=== PATIENT | female | born 1935 | race Caucasian/White ===

== ENCOUNTER 2016-12-12 12:05 | Emergency (ER) | payer MEDICARE, BC ==
[~2016-12-12] VITALS: Ht 162.6 cm; Wt 95.5 kg
[~2016-12-12 12:05] MED LIST: ACULAR LS 5 ML5 ML; ASPIRIN 32325 MG/TAB PO; ASPIRIN E.C. 8181 MG PO; ASPRIN; BENADRYL25 M1 PO; CEFTIN 250250 MG/TAB PO; CEPHALEXIN500 M1 PO; DIABETA 2.5MG2.5 MG PO; DIABETA2.5 MG PO; FERROUS SU325 MG/TAB PO; FLONASE NASAL S16 GM NS; FLONASE0.05 MG/AC NS; FLOVENT 44MCG I13 GM IH; FLOVENT0.044 MG/A IH; FOLIC ACID PO; FORTAMET500 MG PO; GLUCOPHAGE XR500 M1 PO; GLUCOTROL 5M5 MG/TAB PO; GLUMETZA500 MG PO; GLYBURIDE PO; LEVOXYL0.075 MG PO; LEVOXYL0.15 MG PO; LISINOPRIL10 MG PO; LOPRESSOR PO; METFORMIN HCL500 MG PO; METFORMIN1000 MG PO; NORCO 325 MG-51 TAB PO; NORCO 325 MG-7.1 TAB PO; OCUFLOX OPHTH DR5 ML; PLAVIX 75MG TAB75 MG PO; PRED FORTE 1 ML1 ML; PREDNISONE10 MG PO; PREMARIN 0.60.625 M1 PO; PREMARIN0.625 MG PO; PROAIR HFA0.09 MG/AC IH; RALAFEN PO; RELAFEN500 MG PO; SEREVENT IH; SEREVENT21 MCG/ACT IH; SINGULAIR 110 MG/TAB PO; SYNTHROID 0.10.15 MG PO; SYNTHROID0.15 MG PO; TEARS NATURALE15 M1; TYLENOL 325MG325 MG PO; VALTREX1 GM PO; VENTOLIN0.09 MG IH; VITAMIN C500 MG PO; ZESTRIL 10MG10 MG PO; ZESTRIL10 MG PO; ZITHROMAX 250M250 MG PO; ZOCOR20 MG PO
[2016-12-12 12:08] VITALS: TEMP 97.2
[2016-12-12] MEDS ORDERED: CELLCEPT 5500 MG/TAB PO (12:43)
[2016-12-12] MEDS ORDERED: PRILOSEC 20MG20 MG PO (12:46)
[2016-12-12 12:47] LABS: BASO # 0.1 (0.0-0.2); EOS # 0.2 (0.0-0.7); EOS % 2.8 % (0-4.0); GRAN # 4.8 (1.4-6.5); GRAN % 58.9 % (42.2-75.2); HEMATOCRIT 37.3 % (37.0-47.0); HEMOGLOBIN 12.4 g/dl (12.5-16.0); LYMPH # 2.1 (1.2-3.4); LYMPH % 25.4 % (20.0-51.0); MEAN CELL VOLUME 87 fl (80.0-100.0); MEAN CORPUSCULAR HEMOGLOBIN 29 pg (27.0-31.0); MEAN CORPUSCULAR HGB CONC 33 g/dl (33.0-37.0); MEAN PLATELET VOLUME 10.2 fl (7.4-10.4); MONO # 0.9 (0.1-0.6); MONO % 11.5 % (1.7-9.3); PLATELET COUNT 209 K/mm3 (130-400); RED BLOOD COUNT 4.29 M/mm3 (4.10-5.30); REDCELL DISTRIBUTION WIDTH-CV 13.5 % (11.5-14.5); WHITE BLOOD COUNT 8.2 K/mm3 (4.8-10.8)
[2016-12-12] MEDS ORDERED: CYMBALTA 30MG30 MG PO (12:47)
[2016-12-12 12:51] LABS: ADJUSTED CALCIUM 9.5 mg/dL (8.4-10.2); ALANINE AMINOTRANSFERASE 23 U/L (9-52); ALBUMIN 4.1 gm/dL (3.5-5.0); ALKALINE PHOSPHATASE 120 U/L (50-136); ANION GAP 14 mmol/L (7-16); BILIRUBIN,TOTAL 0.7 mg/dL (0.0-1.0); BLOOD UREA NITROGEN 10 mg/dL (7-17); CALCIUM 9.6 mg/dL (8.4-10.2); CARBON DIOXIDE 23 mmol/L (22-30); CHLORIDE 95 mmol/L (98-107); CREATININE, serum 0.59 mg/dL (0.52-1.25); GLUCOSE 147 mg/dL (74-106); LIPASE 23 U/L (23-300); POTASSIUM 4.2 mmol/L (3.4-5.0); SODIUM 131 mmol/L (137-145); TOTAL PROTEIN 7.4 gm/dL (6.4-8.2)
[2016-12-12 13:00] LABS: B-TYPE NATRIURETIC PEPTIDE 180 pg/mL (0-450)
[2016-12-12 13:06] LABS: TROPONIN-I < 0.012 ng/mL (0.000-0.034)
[2016-12-12] MEDS ORDERED: ULTRAM 50MG TAB50 MG PO (13:44)
[2016-12-12] MEDS ORDERED: LEVAQUIN 750MG750 M1 PO (13:44)
[2016-12-12 13:51] VITALS: BP 129/86; PULSE 80
== END 2016-12-12 14:11 | disposition home or self-care (01) ==
LOC: COL.ER 12:05
PROVIDERS: Emergency Medicine
DX: J18.9 Pneumonia, unspecified organism (principal); Z87.891 Personal history of nicotine dependence; E11.9 Type 2 diabetes mellitus without complications; M54.6 Pain in thoracic spine; Z79.84 Long term (current) use of oral hypoglycemic drugs

== ENCOUNTER 2017-02-12 13:59 | Emergency (ER) | payer MEDICARE, BC ==
[~2017-02-12] VITALS: Ht 160 cm; Wt 92.7 kg
[~2017-02-12 13:59] MED LIST changes: +CELLCEPT 5500 MG/TAB PO; +CYMBALTA 30MG30 MG PO; +LEVAQUIN 750MG750 M1 PO; +PRILOSEC 20MG20 MG PO; +ULTRAM 50MG TAB50 MG PO
[2017-02-12 14:01] VITALS: TEMP 99.9
[2017-02-12 14:45] LABS: BASO # 0.1 (0.0-0.2); BASO % 0.5 % (0.0-2.0); EOS # 0.2 (0.0-0.7); EOS % 2.2 % (0-4.0); GRAN # 8.3 (1.4-6.5); GRAN % 83.4 % (42.2-75.2); HEMATOCRIT 38.6 % (37.0-47.0); HEMOGLOBIN 12.9 g/dl (12.5-16.0); LYMPH # 0.7 (1.2-3.4); LYMPH % 6.9 % (20.0-51.0); MEAN CELL VOLUME 87 fl (80.0-100.0); MEAN CORPUSCULAR HEMOGLOBIN 29 pg (27.0-31.0); MEAN CORPUSCULAR HGB CONC 33 g/dl (33.0-37.0); MEAN PLATELET VOLUME 9.6 fl (7.4-10.4); MONO # 0.6 (0.1-0.6); MONO % 6.4 % (1.7-9.3); PLATELET COUNT 183 K/mm3 (130-400); RED BLOOD COUNT 4.45 M/mm3 (4.10-5.30); REDCELL DISTRIBUTION WIDTH-CV 13.6 % (11.5-14.5); WHITE BLOOD COUNT 9.9 K/mm3 (4.8-10.8)
[2017-02-12 15:00] LABS: ADJUSTED CALCIUM 9.1 mg/dL (8.4-10.2); ALANINE AMINOTRANSFERASE 25 U/L (9-52); ALBUMIN 3.9 gm/dL (3.5-5.0); ALKALINE PHOSPHATASE 97 U/L (50-136); ANION GAP 10 mmol/L (7-16); BILIRUBIN,TOTAL 0.6 mg/dL (0.0-1.0); BLOOD UREA NITROGEN 12 mg/dL (7-17); CARBON DIOXIDE 27 mmol/L (22-30); CHLORIDE 95 mmol/L (98-107); GLUCOSE 109 mg/dL (74-106); LIPASE 742 U/L (23-300); POTASSIUM 4.1 mmol/L (3.4-5.0); SODIUM 131 mmol/L (137-145); TOTAL PROTEIN 6.8 gm/dL (6.4-8.2)
[2017-02-12 15:21] LABS: TROPONIN-I < 0.012 ng/mL (0.000-0.034)
[2017-02-12 15:37] LABS: C-REACTIVE PROTEIN 2.9 mg/dL (0.0-0.9)
[2017-02-12] MEDS ORDERED: ZITHROMAX Z PA250 MG PO (16:33)
[2017-02-12 16:46] VITALS: BP 112/62; PULSE 107
[2017-02-12] MEDS ORDERED: SINGULAIR 110 MG/TAB PO (21:05)
[2017-02-12] MEDS ORDERED: AZASAN100 MG (21:07)
[2017-02-12] MEDS ORDERED: 00186-0370-20 IH (21:08)
[2017-02-12] MEDS ORDERED: VENTOLIN0.09 MG IH (21:09)
[2017-02-13] MEDS ORDERED: AZASAN100 MG (18:15)
[2017-02-13] MEDS ORDERED: IMURAN 50MG TAB50 MG PO (18:16)
== END 2017-02-12 17:42 | disposition home or self-care (01) ==
LOC: COL.ER 13:59
PROVIDERS: Physician Assistant
DX: Z02.89 Encounter for other administrative examinations (principal)

== ENCOUNTER 2017-02-12 18:12 | Inpatient (IN) | payer MEDICARE, BC ==
[2017-02-12] VITALS (143 sets, daily range): BP systolic 103; BP diastolic 56; PULSE 76; TEMP 98.2; O2SAT 90–100
[~2017-02-12] VITALS: Ht 165.1 cm; Wt 91.1 kg
[~2017-02-12 18:12] MED LIST changes: +ZITHROMAX Z PA250 MG PO
[2017-02-12 19:41] LABS: BASO # 0.1 (0.0-0.2); BASO % 0.6 % (0.0-2.0); EOS # 0.2 (0.0-0.7); EOS % 1.4 % (0-4.0); GRAN # 8.7 (1.4-6.5); GRAN % 83.9 % (42.2-75.2); HEMATOCRIT 38.1 % (37.0-47.0); HEMOGLOBIN 12.8 g/dl (12.5-16.0); LYMPH # 0.8 (1.2-3.4); LYMPH % 7.7 % (20.0-51.0); MEAN CELL VOLUME 87 fl (80.0-100.0); MEAN CORPUSCULAR HEMOGLOBIN 29 pg (27.0-31.0); MEAN CORPUSCULAR HGB CONC 34 g/dl (33.0-37.0); MONO # 0.6 (0.1-0.6); PLATELET COUNT 200 K/mm3 (130-400); RED BLOOD COUNT 4.39 M/mm3 (4.10-5.30); REDCELL DISTRIBUTION WIDTH-CV 13.7 % (11.5-14.5); WHITE BLOOD COUNT 10.4 K/mm3 (4.8-10.8)
[2017-02-12 19:51] LABS: ANION GAP 10 mmol/L (7-16); BLOOD UREA NITROGEN 14 mg/dL (7-17); CALCIUM 8.9 mg/dL (8.4-10.2); CARBON DIOXIDE 24 mmol/L (22-30); CHLORIDE 95 mmol/L (98-107); GLUCOSE 169 mg/dL (74-106); POTASSIUM 4.2 mmol/L (3.4-5.0); SODIUM 128 mmol/L (137-145)
[2017-02-12] MEDS ORDERED: SINGULAIR 110 MG/TAB PO (21:05)
[2017-02-12] MEDS ORDERED: AZASAN100 MG (21:07)
[2017-02-12] MEDS ORDERED: 00186-0370-20 IH (21:08)
[2017-02-12] MEDS ORDERED: VENTOLIN0.09 MG IH (21:09)
[2017-02-12 22:40] LABS: TROPONIN-I < 0.012 ng/mL (0.000-0.034)
[2017-02-13] VITALS (508 sets, daily range): BP systolic 95–118; BP diastolic 40–62; PULSE 60–78; TEMP 97–97.8; O2SAT 69–100
[2017-02-13 00:31] LABS: PH 6 (5-8); SQUAMOUS EPITHELIAL None Seen /hpf; URINE APPEARANCE Clear; URINE BACTERIA None Seen /hpf; URINE BILIRUBIN Negative (NEGATIVE); URINE BLOOD Negative (NEGATIVE); URINE COLOR Yellow; URINE GLUCOSE Negative (NEGATIVE); URINE KETONE Trace (NEGATIVE); URINE RBC 0-2 /hpf; URINE UROBILINOGEN Negative (NEGATIVE); URINE WBC None Seen /hpf
[2017-02-13 06:40] LABS: BASO % 0.7 % (0.0-2.0); EOS # 0.3 (0.0-0.7); EOS % 5.1 % (0-4.0); GRAN # 3.6 (1.4-6.5); GRAN % 62.9 % (42.2-75.2); LYMPH # 1.2 (1.2-3.4); LYMPH % 21.3 % (20.0-51.0); MEAN CELL VOLUME 89 fl (80.0-100.0); MEAN CORPUSCULAR HGB CONC 33 g/dl (33.0-37.0); MEAN PLATELET VOLUME 10.2 fl (7.4-10.4); MONO # 0.5 (0.1-0.6); MONO % 9.5 % (1.7-9.3); PLATELET COUNT 169 K/mm3 (130-400); RED BLOOD COUNT 3.92 M/mm3 (4.10-5.30); REDCELL DISTRIBUTION WIDTH-CV 13.9 % (11.5-14.5); WHITE BLOOD COUNT 5.7 K/mm3 (4.8-10.8)
[2017-02-13 06:56] LABS: HEMATOCRIT 34.8 % (37.0-47.0); HEMOGLOBIN 11.3 g/dl (12.5-16.0); MEAN CORPUSCULAR HEMOGLOBIN 29 pg (27.0-31.0)
[2017-02-13 06:59] LABS: CALCIUM 8.1 mg/dL (8.4-10.2); CREATININE, serum 0.59 mg/dL (0.52-1.25); MAGNESIUM 1.8 mg/dL (1.6-2.3); PHOSPHOROUS 3.7 mg/dL (2.5-4.5); POTASSIUM 3.6 mmol/L (3.4-5.0)
[2017-02-13] MEDS ORDERED: AZASAN100 MG (18:15)
[2017-02-13] MEDS ORDERED: IMURAN 50MG TAB50 MG PO (18:16)
[2017-02-14] VITALS (7 sets, daily range): BP systolic 95–128; BP diastolic 44–86; PULSE 59–77; TEMP 97.7–98.6
[2017-02-14 07:35] LABS: BASO # 0.1 (0.0-0.2); BASO % 0.9 % (0.0-2.0); EOS # 0.5 (0.0-0.7); EOS % 7.7 % (0-4.0); GRAN # 3.5 (1.4-6.5); GRAN % 53.3 % (42.2-75.2); LYMPH # 1.9 (1.2-3.4); LYMPH % 28.5 % (20.0-51.0); MEAN CELL VOLUME 89 fl (80.0-100.0); MEAN CORPUSCULAR HGB CONC 33 g/dl (33.0-37.0); MEAN PLATELET VOLUME 10.4 fl (7.4-10.4); MONO # 0.6 (0.1-0.6); MONO % 9.4 % (1.7-9.3); PLATELET COUNT 192 K/mm3 (130-400); RED BLOOD COUNT 3.95 M/mm3 (4.10-5.30); REDCELL DISTRIBUTION WIDTH-CV 13.8 % (11.5-14.5); WHITE BLOOD COUNT 6.5 K/mm3 (4.8-10.8)
[2017-02-14 07:48] LABS: ADJUSTED CALCIUM 9.3 mg/dL (8.4-10.2); ALBUMIN 3.2 gm/dL (3.5-5.0); BILIRUBIN,TOTAL 0.4 mg/dL (0.0-1.0); C-REACTIVE PROTEIN 7.1 mg/dL (0.0-0.9); CALCIUM 8.7 mg/dL (8.4-10.2); CREATININE, serum 0.59 mg/dL (0.52-1.25)
[2017-02-14 08:17] LABS: THYROID STIMULATING HORMONE 2.05 uIU/mL (0.465-4.680)
[2017-02-14 08:19] LABS: HEMOGLOBIN 11.5 g/dl (12.5-16.0); MEAN CORPUSCULAR HEMOGLOBIN 29 pg (27.0-31.0)
[2017-02-14 08:23] LABS: ERYTHROCYTE SEDIMENTATION RATE 16 mm/hr (0-30)
[2017-02-15 03:30] VITALS: BP 132/61; PULSE 65; TEMP 97.7
[2017-02-15 07:34] VITALS: BP 129/61; PULSE 59; TEMP 97.9
[2017-02-15 07:43] LABS: BASO # 0.1 (0.0-0.2); BASO % 1.1 % (0.0-2.0); EOS # 0.5 (0.0-0.7); EOS % 7.4 % (0-4.0); GRAN # 3.3 (1.4-6.5); GRAN % 51.3 % (42.2-75.2); MEAN CELL VOLUME 87 fl (80.0-100.0); MEAN CORPUSCULAR HGB CONC 34 g/dl (33.0-37.0); MEAN PLATELET VOLUME 9.9 fl (7.4-10.4); MONO # 0.5 (0.1-0.6); PLATELET COUNT 217 K/mm3 (130-400); RED BLOOD COUNT 4.08 M/mm3 (4.10-5.30); REDCELL DISTRIBUTION WIDTH-CV 13.5 % (11.5-14.5); WHITE BLOOD COUNT 6.3 K/mm3 (4.8-10.8)
[2017-02-15 07:45] LABS: HEMATOCRIT 35.3 % (37.0-47.0); HEMOGLOBIN 11.9 g/dl (12.5-16.0); MEAN CORPUSCULAR HEMOGLOBIN 29 pg (27.0-31.0)
[2017-02-15 11:09] VITALS: BP 153/70; PULSE 62; TEMP 97.9
== END 2017-02-15 14:41 | disposition home or self-care (01) | DRG 872 ==
LOC: COL.ER 18:12 → ICU 20:44 → MEDICAL 20:44
PROVIDERS: Emergency Medicine; Internal Medicine
DX: A41.89 Other specified sepsis (principal); E87.1 Hypo-osmolality and hyponatremia; J96.10 Chronic respiratory failure, unspecified whether with hypoxia or hypercapnia; E11.9 Type 2 diabetes mellitus without complications; E87.6 Hypokalemia; J44.9 Chronic obstructive pulmonary disease, unspecified; E03.9 Hypothyroidism, unspecified; I10 Essential (primary) hypertension; J84.10 Pulmonary fibrosis, unspecified; Z87.891 Personal history of nicotine dependence; Z79.84 Long term (current) use of oral hypoglycemic drugs; B34.9 Viral infection, unspecified
CPT/HCPCS: 99223-AI; 99232-AI; 99233-AI; 99239; J0696; J1650; J7030

== ENCOUNTER → 2017-03-11 | Outpatient (CLI) | payer MEDICARE, BC ==
[~2017-03-11] MED LIST changes: +00186-0370-20 IH; +AZASAN100 MG; +IMURAN 50MG TAB50 MG PO
== END ==
LOC: MC.RAD 03-05 14:00
DX: Z12.31 Encounter for screening mammogram for malignant neoplasm of breast (principal)

== ENCOUNTER 2017-06-16 22:06 | Emergency (ER) | payer MEDICARE, BC ==
[~2017-06-16] VITALS: Ht 160 cm; Wt 92.7 kg
[2017-06-16 22:21] VITALS: BP 124/69; TEMP 98.1
[2017-06-17 01:26] VITALS: PULSE 82
== END 2017-06-17 01:27 | disposition home or self-care (01) ==
LOC: COL.ER 22:06
DX: J44.0 Chronic obstructive pulmonary disease with (acute) lower respiratory infection (principal); J20.9 Acute bronchitis, unspecified; J84.10 Pulmonary fibrosis, unspecified; E11.9 Type 2 diabetes mellitus without complications; Z79.84 Long term (current) use of oral hypoglycemic drugs

== ENCOUNTER 2017-06-28 13:16 | Emergency (ER) | payer MEDICARE, BC ==
[~2017-06-28] VITALS: Ht 160 cm; Wt 92.7 kg
[~2017-06-28 13:16] MED LIST changes: -GLUCOTROL 5M5 MG/TAB PO; +GLUCOTROL10 MG PO; -LEVOXYL0.075 MG PO; +LEVOXYL0.125 MG PO
[2017-06-28 13:19] VITALS: TEMP 98.9
[2017-06-28 15:35] LABS: BASO # 0.1 (0.0-0.2); BASO % 0.6 % (0.0-2.0); EOS # 0.2 (0.0-0.7); EOS % 2.1 % (0-4.0); GRAN # 7.9 (1.4-6.5); HEMATOCRIT 38.1 % (37.0-47.0); HEMOGLOBIN 12.6 g/dl (12.5-16.0); LYMPH # 2.3 (1.2-3.4); MEAN CELL VOLUME 89 fl (80.0-100.0); MEAN CORPUSCULAR HEMOGLOBIN 29 pg (27.0-31.0); MEAN CORPUSCULAR HGB CONC 33 g/dl (33.0-37.0); MEAN PLATELET VOLUME 9.8 fl (7.4-10.4); MONO % 8.9 % (1.7-9.3); PLATELET COUNT 274 K/mm3 (130-400); RED BLOOD COUNT 4.29 M/mm3 (4.10-5.30); REDCELL DISTRIBUTION WIDTH-CV 13.6 % (11.5-14.5); WHITE BLOOD COUNT 11.6 K/mm3 (4.8-10.8)
[2017-06-28 15:45] LABS: ADJUSTED CALCIUM 9.7 mg/dL (8.4-10.2); ALANINE AMINOTRANSFERASE 18 U/L (9-52); ALBUMIN 3.9 gm/dL (3.5-5.0); ALKALINE PHOSPHATASE 103 U/L (50-136); ANION GAP 9 mmol/L (7-16); BILIRUBIN,TOTAL 0.5 mg/dL (0.0-1.0); BLOOD UREA NITROGEN 11 mg/dL (7-17); CALCIUM 9.6 mg/dL (8.4-10.2); CARBON DIOXIDE 28 mmol/L (22-30); CHLORIDE 96 mmol/L (98-107); CREATININE, serum 0.58 mg/dL (0.52-1.25); GLUCOSE 114 mg/dL (74-106); POTASSIUM 4.2 mmol/L (3.4-5.0); SODIUM 133 mmol/L (137-145); TOTAL PROTEIN 7.5 gm/dL (6.4-8.2)
[2017-06-28 15:57] LABS: ERYTHROCYTE SEDIMENTATION RATE 37 mm/hr (0-30)
[2017-06-28 15:58] LABS: TROPONIN-I < 0.012 ng/mL (0.000-0.034)
[2017-06-28 16:34] LABS: CREATINE KINASE 33 U/L (30-135)
[2017-06-28] MEDS ORDERED: FLEXERIL5 MG PO (16:49)
[2017-06-28 17:06] VITALS: BP 123/72; PULSE 60
== END 2017-06-28 17:07 | disposition home or self-care (01) ==
LOC: COL.ER 13:16
PROVIDERS: Emergency Medicine
DX: R68.84 Jaw pain (principal); M54.2 Cervicalgia; I10 Essential (primary) hypertension; E11.9 Type 2 diabetes mellitus without complications; J45.909 Unspecified asthma, uncomplicated; E03.9 Hypothyroidism, unspecified; K21.9 Gastro-esophageal reflux disease without esophagitis; G47.33 Obstructive sleep apnea (adult) (pediatric); Z79.84 Long term (current) use of oral hypoglycemic drugs; Z79.82 Long term (current) use of aspirin
CPT/HCPCS: J1885

== ENCOUNTER 2018-11-17 10:01 | Observation (INO) | payer MEDICARE, BC ==
[~2018-11-17] VITALS: Ht 162.7 cm; Wt 94.4 kg
[~2018-11-17 10:01] MED LIST changes: +AMBIEN 5MG TABLE5 MG PO; +DOXYCYCLINE 10100 MG PO; +FLEXERIL5 MG PO; +PREDNISONE20 MG PO; +PROVENTIL0.09 MG/A1 IH; +RELAFEN 50500 MG/TAB PO; +ZOLOFT 25MG25 MG PO
[2018-11-17 10:20] LABS: BASO # 0.1 (0.0-0.2); BASO % 0.9 % (0.0-2.0); EOS # 0.6 (0.0-0.7); EOS % 5.2 % (0-4.0); GRAN % 65.1 % (42.2-75.2); HEMATOCRIT 39.2 % (37.0-47.0); HEMOGLOBIN 12.8 g/dl (12.5-16.0); LYMPH # 2.2 (1.2-3.4); LYMPH % 20.1 % (20.0-51.0); MEAN CELL VOLUME 90 fl (80.0-100.0); MEAN CORPUSCULAR HEMOGLOBIN 29 pg (27.0-31.0); MEAN CORPUSCULAR HGB CONC 33 g/dl (33.0-37.0); MEAN PLATELET VOLUME 9.8 fl (7.4-10.4); MONO # 0.9 (0.1-0.6); MONO % 8.2 % (1.7-9.3); PLATELET COUNT 254 K/mm3 (130-400); RED BLOOD COUNT 4.36 M/mm3 (4.10-5.30); REDCELL DISTRIBUTION WIDTH-CV 13.8 % (11.5-14.5)
[2018-11-17] MEDS ORDERED: CIPRO XR500 MG PO (10:20)
[2018-11-17 10:24] LABS: PROTHROMBIN TIME 11.6 SECONDS (9.7-12.8)
[2018-11-17 10:27] LABS: PARTIAL THROMBOPLASTIN TIME 34.5 SECONDS (26.0-37.0)
[2018-11-17 10:28] LABS: ALANINE AMINOTRANSFERASE 14 U/L (9-52); ALBUMIN 3.9 gm/dL (3.5-5.0); ALKALINE PHOSPHATASE 107 U/L (50-136); ANION GAP 7 mmol/L (7-16); AST,SGOT 16 U/L (15-37); BILIRUBIN,TOTAL 0.4 mg/dL (0.0-1.0); BLOOD UREA NITROGEN 14 mg/dL (7-17); CARBON DIOXIDE 29 mmol/L (22-30); CHLORIDE 99 mmol/L (98-107); CREATININE, serum 0.61 mg/dL (0.52-1.25); GLUCOSE 133 mg/dL (74-106); LIPASE 23 U/L (23-300); SODIUM 135 mmol/L (137-145); TOTAL PROTEIN 7.1 gm/dL (6.4-8.2)
[2018-11-17 10:44] LABS: POTASSIUM 4.4 mmol/L (3.4-5.0); TROPONIN-I < 0.012 ng/mL (0.000-0.035)
[2018-11-17 12:36] VITALS: BP 134/53; PULSE 68; TEMP 100.2
[2018-11-17] MEDS ORDERED: FLONASE NASAL S16 GM NS (13:19)
--- NOTE | 2018-11-17 14:00 | NUR ---
ARRIVED FROM ER VIA GURNEY, WITH NEWBORN PHOTOGRAPHER, AND AMBULATED WITH STANDBY INTO BED, GAIT STEADY. PT HAS C/O PAIN IN HER LOWER NECK. PT ADVISED THAT HER CHEST PAIN WAS ON THE RIGHT SIDE AND IN HER NECK. PT ONLY HAS PAIN IN HER NECK AT THIS TIME RATED AT AN 8/10, PAIN IS CONSTANT IN HER NECK. CALL LIGHT WITHIN REACH.
[2018-11-17 16:47] VITALS: BP 118/53; PULSE 57; TEMP 97.9
--- NOTE | 2018-11-17 18:44 | NUR ---
PT HAS BEEN IN BED SINCE SHE HAS GOTTEN HERE. SHE IS AWARE OF HER TEST TOMORROW MORNING AND THAT SHE NEEDS TO BE NPO AND NO CAFFEINE FOR 24 HOURS. PT ADVISES THAT SHE IS STILL HAVING PAIN IN HER NECK, BUT THAT IS NOTHING NEW. CALL LIGHT WITHIN REACH.
[2018-11-17 19:18] VITALS: BP 111/68; PULSE 66; TEMP 98
--- NOTE | 2018-11-17 22:06 | NUR ---
Received new order for Zofran 4mg from [facility] for acute nausea. CDA
--- NOTE | 2018-11-18 01:09 | NUR ---
PT refused CPAP after about 30 minutes and short one time episode of N/V, stating that it is giving her a "suffocating" feeling; RT notified and reassess with PT. PT continued to refuse. SELAM
[2018-11-18 01:21] VITALS: BP 110/54; PULSE 74; TEMP 98
--- NOTE | 2018-11-18 03:06 | NUR ---
PT resting in best without CPAP on; RT and this nurse has been in to check on status of PT without CPAP. No further needs at times of assessment check. CDA
[2018-11-18 06:20] VITALS: BP 110/54; PULSE 74
--- NOTE | 2018-11-18 07:17 | NUR ---
Report given to MANDY Napoles. CDA
[2018-11-18 08:29] LABS: BASO # 0.1 (0.0-0.2); BASO % 0.9 % (0.0-2.0); EOS # 0.4 (0.0-0.7); EOS % 5.2 % (0-4.0); GRAN # 5.3 (1.4-6.5); GRAN % 63.1 % (42.2-75.2); HEMATOCRIT 38.3 % (37.0-47.0); HEMOGLOBIN 12.5 g/dl (12.5-16.0); LYMPH # 1.9 (1.2-3.4); LYMPH % 22.4 % (20.0-51.0); MEAN CELL VOLUME 90 fl (80.0-100.0); MEAN CORPUSCULAR HEMOGLOBIN 29 pg (27.0-31.0); MEAN CORPUSCULAR HGB CONC 33 g/dl (33.0-37.0); MEAN PLATELET VOLUME 10.3 fl (7.4-10.4); MONO # 0.7 (0.1-0.6); MONO % 7.9 % (1.7-9.3); PLATELET COUNT 245 K/mm3 (130-400); RED BLOOD COUNT 4.26 M/mm3 (4.10-5.30); REDCELL DISTRIBUTION WIDTH-CV 14.1 % (11.5-14.5)
[2018-11-18 08:40] LABS: CALCIUM 8.7 mg/dL (8.4-10.2); CREATININE, serum 0.6 mg/dL (0.52-1.25); POTASSIUM 4.2 mmol/L (3.4-5.0)
[2018-11-18 09:24] VITALS: BP 106/56; PULSE 85
[2018-11-18 09:25] VITALS: BP 114/59; PULSE 84
[2018-11-18 09:26] VITALS: BP 114/59; PULSE 84
--- NOTE | 2018-11-18 10:30 | NUR ---
Pt AAOx3 stating great hunger. Lexiscan still pending and pt educated on NPO status for potential procedure. Pt agrees. Walker in room by bed, pt educated despite pt stating independence in ambulating, to call for assistance before attempting to get out of bed. Meds given with small sip of juice.
[2018-11-18 12:21] VITALS: BP 109/45; PULSE 73; TEMP 98.7
--- NOTE | 2018-11-18 15:06 | NUR ---
SW met with patient to disucss discharge planning. Patient lives at home with her children. Her PCP is Dr Hernandez and she obtains prescriptions from [facility] pharmacy. Patient uses oxygen, a walker, and a cpap at home. Patient does not use any home health services. Patient reports she has a DPOA. SW does not anticipate any needs upon discharge.
== END 2018-11-18 16:00 | disposition home or self-care (01) ==
LOC: COL.ER 10:01 → MEDICAL 11:04
PROVIDERS: Emergency Medicine; Physician Assistant; ADMIT Internal Medicine
DX: R07.9 Chest pain, unspecified (principal); R51 Headache; M54.2 Cervicalgia; J84.9 Interstitial pulmonary disease, unspecified; J44.9 Chronic obstructive pulmonary disease, unspecified; E03.9 Hypothyroidism, unspecified; K21.9 Gastro-esophageal reflux disease without esophagitis; E11.9 Type 2 diabetes mellitus without complications; Z79.84 Long term (current) use of oral hypoglycemic drugs; F32.9 Major depressive disorder, single episode, unspecified; M19.90 Unspecified osteoarthritis, unspecified site; R54 Age-related physical debility; I25.10 Atherosclerotic heart disease of native coronary artery without angina pectoris; E78.5 Hyperlipidemia, unspecified; Z79.82 Long term (current) use of aspirin; Z79.899 Other long term (current) drug therapy; Z87.891 Personal history of nicotine dependence
CPT/HCPCS: A9500; G0378; J1815; J2405; J2785

== ENCOUNTER 2019-02-10 02:15 | Emergency (ER) | payer MEDICARE, BC ==
[~2019-02-10] VITALS: Ht 160 cm; Wt 95.5 kg
[~2019-02-10 02:15] MED LIST changes: +CIPRO XR500 MG PO
[2019-02-10 02:20] VITALS: TEMP 97
[2019-02-10 03:00] LABS: BASO # 0.1 (0.0-0.2); BASO % 0.7 % (0.0-2.0); EOS # 0.6 (0.0-0.7); EOS % 6.2 % (0-4.0); GRAN # 5.4 (1.4-6.5); GRAN % 59.4 % (42.2-75.2); HEMATOCRIT 41.5 % (37.0-47.0); HEMOGLOBIN 13.5 g/dl (12.5-16.0); LYMPH # 2.4 (1.2-3.4); LYMPH % 26.2 % (20.0-51.0); MEAN CELL VOLUME 89 fl (80.0-100.0); MEAN CORPUSCULAR HEMOGLOBIN 29 pg (27.0-31.0); MEAN CORPUSCULAR HGB CONC 33 g/dl (33.0-37.0); MEAN PLATELET VOLUME 9.7 fl (7.4-10.4); MONO # 0.7 (0.1-0.6); MONO % 7.2 % (1.7-9.3); PLATELET COUNT 263 K/mm3 (130-400); RED BLOOD COUNT 4.64 M/mm3 (4.10-5.30); REDCELL DISTRIBUTION WIDTH-CV 13.7 % (11.5-14.5)
[2019-02-10 03:28] LABS: ALANINE AMINOTRANSFERASE < 6 U/L (9-52); ALBUMIN 4.3 gm/dL (3.5-5.0); ALKALINE PHOSPHATASE 129 U/L (50-136); ANION GAP 13 mmol/L (7-16); AST,SGOT 20 U/L (15-37); BILIRUBIN,TOTAL 0.3 mg/dL (0.0-1.0); BLOOD UREA NITROGEN 12 mg/dL (7-17); CALCIUM 9.8 mg/dL (8.4-10.2); CARBON DIOXIDE 23 mmol/L (22-30); CHLORIDE 103 mmol/L (98-107); GLUCOSE 144 mg/dL (74-106); POTASSIUM 4.2 mmol/L (3.4-5.0); SODIUM 139 mmol/L (137-145); TOTAL PROTEIN 7.8 gm/dL (6.4-8.2)
[2019-02-10] MEDS ORDERED: ZITHROMAX500 M2 PO (04:36)
[2019-02-10] MEDS ORDERED: TESSALON PERLE200 MG PO (04:36)
[2019-02-10 05:32] VITALS: BP 153/79; PULSE 58
== END 2019-02-10 05:26 | disposition home or self-care (01) ==
LOC: COL.ER 02:15
PROVIDERS: Emergency Medicine
DX: J18.1 Lobar pneumonia, unspecified organism (principal); E11.9 Type 2 diabetes mellitus without complications; I10 Essential (primary) hypertension; J44.9 Chronic obstructive pulmonary disease, unspecified; E03.9 Hypothyroidism, unspecified; G47.33 Obstructive sleep apnea (adult) (pediatric); Z79.82 Long term (current) use of aspirin; Z79.84 Long term (current) use of oral hypoglycemic drugs
CPT/HCPCS: A4216; J0696; J7030

== ENCOUNTER 2019-07-04 15:28 | Emergency (ER) | payer MEDICARE, BC ==
[~2019-07-04] VITALS: Ht 160 cm; Wt 92.7 kg
[~2019-07-04 15:28] MED LIST changes: +TESSALON PERLE200 MG PO; +ZITHROMAX500 M2 PO
[2019-07-04 15:35] VITALS: TEMP 98.6
[2019-07-04 15:57] LABS: BASO # 0.1 (0.0-0.2); BASO % 0.5 % (0.0-2.0); EOS # 0.1 (0.0-0.7); EOS % 0.9 % (0-4.0); GRAN # 8.6 (1.4-6.5); GRAN % 73.6 % (42.2-75.2); HEMOGLOBIN 12.5 g/dl (12.5-16.0); LYMPH # 1.8 (1.2-3.4); LYMPH % 15.5 % (20.0-51.0); MEAN CELL VOLUME 89 fl (80.0-100.0); MEAN CORPUSCULAR HEMOGLOBIN 30 pg (27.0-31.0); MEAN CORPUSCULAR HGB CONC 34 g/dl (33.0-37.0); MEAN PLATELET VOLUME 10.3 fl (7.4-10.4); MONO # 1.1 (0.1-0.6); MONO % 9.2 % (1.7-9.3); PLATELET COUNT 183 K/mm3 (130-400); RED BLOOD COUNT 4.12 M/mm3 (4.10-5.30); REDCELL DISTRIBUTION WIDTH-CV 14.6 % (11.5-14.5)
[2019-07-04 16:00] LABS: HEMATOCRIT 36.7 % (37.0-47.0)
[2019-07-04 16:03] LABS: INR 1.1 (0.8-3.0); PROTHROMBIN TIME 12.4 SECONDS (9.7-12.8)
[2019-07-04 16:08] LABS: ALANINE AMINOTRANSFERASE 10 U/L (9-52); ALBUMIN 4.1 gm/dL (3.5-5.0); ALKALINE PHOSPHATASE 90 U/L (50-136); ANION GAP 10 mmol/L (7-16); AST,SGOT 17 U/L (15-37); BILIRUBIN,TOTAL 0.6 mg/dL (0.0-1.0); BLOOD UREA NITROGEN 11 mg/dL (7-17); CALCIUM 9.3 mg/dL (8.4-10.2); CARBON DIOXIDE 26 mmol/L (22-30); CHLORIDE 100 mmol/L (98-107); CREATININE, serum 0.58 (0.52-1.25); GLUCOSE 85 mg/dL (74-106); POTASSIUM 4.1 mmol/L (3.4-5.0); SODIUM 136 mmol/L (137-145); TOTAL PROTEIN 7.3 gm/dL (6.4-8.2)
[2019-07-04 16:13] LABS: D-DIMER < 200.00 ng/mLDDu (200-230)
[2019-07-04 16:19] LABS: TROPONIN-I < 0.012 ng/mL (0.000-0.035)
[2019-07-04 16:51] LABS: COLLECTION METHOD CLEAN CATCH
[2019-07-04 17:02] LABS: PH 8 (5-8); SQUAMOUS EPITHELIAL None Seen /hpf; URINE APPEARANCE Clear; URINE BACTERIA Occasional /hpf; URINE BILIRUBIN Negative (NEGATIVE); URINE BLOOD 1+ (NEGATIVE); URINE COLOR Straw; URINE GLUCOSE Negative (NEGATIVE); URINE KETONE Negative (NEGATIVE); URINE LEUKOCYTE ESTERASE Negative (NEGATIVE); URINE NITRATE Negative (NEGATIVE); URINE PROTEIN(semi-quant) Negative (NEGATIVE); URINE RBC 0-2 /hpf; URINE UROBILINOGEN Negative (NEGATIVE)
[2019-07-04] MEDS ORDERED: VENTOLIN0.09 MG IH (18:09)
[2019-07-04] MEDS ORDERED: SYNTHROID0.125 MG/T PO (18:12)
[2019-07-04] MEDS ORDERED: RELAFEN 50500 MG/TAB PO (18:14)
[2019-07-04] MEDS ORDERED: SINGULAIR 110 MG/TAB PO (18:16)
[2019-07-04] MEDS ORDERED: OFEV150 MG PO (18:18)
[2019-07-04] MEDS ORDERED: PREDNISONE20 MG PO (19:33)
[2019-07-04] MEDS ORDERED: ZITHROMAX Z PA250 MG PO (19:33)
[2019-07-04 20:08] VITALS: BP 125/71; PULSE 82
== END 2019-07-04 20:07 | disposition home or self-care (01) ==
LOC: COL.ER 15:28
PROVIDERS: Family Medicine
DX: J84.10 Pulmonary fibrosis, unspecified (principal); I10 Essential (primary) hypertension; E11.9 Type 2 diabetes mellitus without complications; J44.9 Chronic obstructive pulmonary disease, unspecified; I25.10 Atherosclerotic heart disease of native coronary artery without angina pectoris; Z95.1 Presence of aortocoronary bypass graft; Z79.84 Long term (current) use of oral hypoglycemic drugs; Z79.82 Long term (current) use of aspirin
CPT/HCPCS: J1100

== ENCOUNTER 2020-12-07 11:14 | Inpatient (IN) | payer MEDICARE, BC ==
[~2020-12-07] VITALS: Ht 160 cm; Wt 72.7 kg
[~2020-12-07 11:14] MED LIST changes: +COLACE 100100 MG/CAP PO; +LEADER CLEARLAX 510 PO; +OFEV150 MG PO; +SYNTHROID0.125 MG/T PO
[2020-12-07 12:02] LABS: BASO # 0.1 (0.0-0.2); BASO % 0.7 % (0.0-2.0); EOS # 0.4 (0.0-0.7); EOS % 5.8 % (0-4.0); GRAN # 5.1 (1.4-6.5); GRAN % 67.1 % (42.2-75.2); HEMATOCRIT 37.8 % (37.0-47.0); HEMOGLOBIN 12.3 g/dl (12.5-16.0); LYMPH # 1.5 (1.2-3.4); LYMPH % 19.4 % (20.0-51.0); MEAN CELL VOLUME 95 fl (80.0-100.0); MEAN CORPUSCULAR HEMOGLOBIN 31 pg (27.0-31.0); MEAN CORPUSCULAR HGB CONC 33 g/dl (33.0-37.0); MEAN PLATELET VOLUME 10.6 fl (7.4-10.4); MONO # 0.5 (0.1-0.6); MONO % 6.7 % (1.7-9.3); PLATELET COUNT 181 K/mm3 (130-400); RED BLOOD COUNT 3.99 M/mm3 (4.10-5.30); REDCELL DISTRIBUTION WIDTH-CV 13.8 % (11.5-14.5)
[2020-12-07 12:09] LABS: COLLECTION METHOD CLEAN CATCH
[2020-12-07 12:13] LABS: ALANINE AMINOTRANSFERASE 14 U/L (4-34); ALBUMIN 3.7 gm/dL (3.5-5.0); ALKALINE PHOSPHATASE 60 U/L (50-136); ANION GAP 2 mmol/L (7-16); AST,SGOT 21 U/L (15-37); BILIRUBIN,TOTAL 0.4 mg/dL (0.0-1.0); BLOOD UREA NITROGEN 11 mg/dL (7-17); CARBON DIOXIDE 35 mmol/L (22-30); CHLORIDE 97 mmol/L (98-107); GLUCOSE 68 mg/dL (74-106); POTASSIUM 4.1 mmol/L (3.4-5.0); SODIUM 134 mmol/L (137-145); TOTAL PROTEIN 6.5 gm/dL (6.4-8.2)
[2020-12-07 12:14] LABS: PH 7 (5-8); SQUAMOUS EPITHELIAL 0-2 /hpf; URINE APPEARANCE Clear; URINE BACTERIA None Seen /hpf; URINE BILIRUBIN Negative (NEGATIVE); URINE BLOOD Negative (NEGATIVE); URINE COLOR Straw; URINE GLUCOSE Negative (NEGATIVE); URINE KETONE Negative (NEGATIVE); URINE LEUKOCYTE ESTERASE Negative (NEGATIVE); URINE NITRATE Negative (NEGATIVE); URINE PROTEIN(semi-quant) Negative (NEGATIVE); URINE RBC 0-2 /hpf; URINE UROBILINOGEN Negative (NEGATIVE)
[2020-12-07 12:26] LABS: TROPONIN-I < 0.012 ng/mL (0.000-0.035)
[2020-12-07 20:00] VITALS: BP 127/71; PULSE 88; TEMP 97.5
--- NOTE | 2020-12-07 21:54 | NUR ---
PT BROUGHT TO RM 319 PER CART FROM ER. A AND O X4. INT INTACT TO R AC. FLUSHES WELL. ACCU CHECK AT 2100 247 AND GIVEN 2 UNITS NOVOLOG. TELE ON WITH HR IN 80'S. STATES SHE HAS LOST GREATER THAN 30# OVER THE LAST 5-6 MONTHS. AMBULATES WITH USE OF WALKER AT HOME. BED ALARM ON. CALL LIGHT IN REACH. REPORTS SHE WEARS A C-PAP AT HS. ON O2 AT 2/NC. VS MONITORED. USES BEDSIDE COMMODE. CL, YELLOW URINE. STATES SHE HAS HAD A HARD TIME GETTING HER AIR.
[2020-12-08] VITALS (7 sets, daily range): BP systolic 116–145; BP diastolic 59–76; PULSE 73–88; TEMP 97.4–98.4
[2020-12-08 07:24] LABS: GRAN # 3.9 (1.4-6.5); GRAN % 83.8 % (42.2-75.2); HEMATOCRIT 38.5 % (37.0-47.0); HEMOGLOBIN 12.7 g/dl (12.5-16.0); LYMPH # 0.7 (1.2-3.4); LYMPH % 15.1 % (20.0-51.0); MEAN CELL VOLUME 92 fl (80.0-100.0); MEAN CORPUSCULAR HEMOGLOBIN 30 pg (27.0-31.0); MEAN CORPUSCULAR HGB CONC 33 g/dl (33.0-37.0); MEAN PLATELET VOLUME 10.5 fl (7.4-10.4); MONO % 0.9 % (1.7-9.3); PLATELET COUNT 188 K/mm3 (130-400); REDCELL DISTRIBUTION WIDTH-CV 13.7 % (11.5-14.5)
--- NOTE | 2020-12-08 07:35 | NUR ---
PT C/O H/A THIS MORNING AND GIVEN TYLENOL 650MG. O2 AT 3L/NC. INT TO R AC. ACCU CHECK AT HS 247 AND THIS AM 143. END OF SHIFT REPORT GIVEN TO DAY SHIFT NURSE.
[2020-12-08 07:44] LABS: ALBUMIN 3.9 gm/dL (3.5-5.0); BILIRUBIN,TOTAL 0.6 mg/dL (0.0-1.0); CALCIUM 9.4 mg/dL (8.4-10.2); CREATININE, serum 0.51 (0.52-1.25); POTASSIUM 4.5 mmol/L (3.4-5.0); TOTAL PROTEIN 6.9 gm/dL (6.4-8.2)
--- NOTE | 2020-12-08 07:54 | NUR ---
PT AOX4, PLEASANT, REPORTS 8/10 HEADACHE, TYLENOL PREVIOUSLY GIVEN BEFORE SHIFT CHANGE, MEDICATIONS GIVEN, PT REPORTS HAVING SOME MEDICATIONS THAT HAVE NOT BEEN CONTINUED AT THIS TIME. PT EATING BREAKFAST AT TIME, ASSESSMENT PERFORMED, VITALS REVIEWED, NO OTHER NEEDS
--- NOTE | 2020-12-08 12:25 | NUR ---
SW met with patient to complete intake. patient sates that she lives in [facility] with her daughter Diana [phone]. Patient states that she utilizes a walker currently to get around, and generally does not need assistance with her ADL's, but when she does her daughter helps. Patient states that she feels as though it may be time to get some home health when she returns home for more assistance to take some of the weight from her daughter. Patient also states that she may need some meal assistance up on DC. Patient provides that her PCP is Dr. Dan, pharmacy is [facility] and is able to afford her medications. Patient provides that she believes that Leanna and Gera are her DPOA-HC, but unable to recall numbers. Patient also provided that she is Medicaid pending and is awaiting a call from them soon. Patient sates that she plans to return home up on dc if she is able to do so. SW will continue to follow.
--- NOTE | 2020-12-08 17:23 | NUR ---
PT PLEASANT, HAS PRODUCTIVE COUGH WITH CLEAR SPUTUM, REPORTS HEADACHE DURING SHIFT UNRELIEVED WITH TYLENOL, PT HOME MED BROUGHT TO HOSPITAL AND SENT TO PHARMACY W/ PT LABEL, PT VITALS STABLE, ON 2L NC.
[2020-12-09 03:37] VITALS: BP 112/69; PULSE 99; TEMP 97.5
--- NOTE | 2020-12-09 06:37 | NUR ---
PATIEMT RESTED QUIETLY IN BED THROUGHOUT THE NIGHT. UP SEVERAL TIMES TO THE BEDSIDE COMMODE TO URINATE. NO NEW ISSUES.
[2020-12-09 06:51] LABS: HEMATOCRIT 37.1 % (37.0-47.0); HEMOGLOBIN 12.2 g/dl (12.5-16.0); MEAN CELL VOLUME 93 fl (80.0-100.0); MEAN CORPUSCULAR HEMOGLOBIN 31 pg (27.0-31.0); MEAN CORPUSCULAR HGB CONC 33 g/dl (33.0-37.0); MEAN PLATELET VOLUME 11.1 fl (7.4-10.4); PLATELET COUNT 175 K/mm3 (130-400); REDCELL DISTRIBUTION WIDTH-CV 13.7 % (11.5-14.5)
[2020-12-09 08:05] LABS: ALBUMIN 3.8 gm/dL (3.5-5.0); BILIRUBIN,TOTAL 0.5 mg/dL (0.0-1.0); C-REACTIVE PROTEIN 0.7 mg/dL (0.0-0.9); CALCIUM 9.4 mg/dL (8.4-10.2); CREATININE, serum 0.67 (0.52-1.25); POTASSIUM 4.6 mmol/L (3.4-5.0); TOTAL PROTEIN 6.6 gm/dL (6.4-8.2)
[2020-12-09 08:25] VITALS: BP 118/60; PULSE 89; TEMP 98.1
--- NOTE | 2020-12-09 08:58 | NUR ---
Assessment complete. Patient resting on entry but awoke easily to verbal stimulation. Patient states she feels okay, just "needs some new lungs". No complaints of apin or discomfort were expressed at this time. IV site is CD&I, there is bruising at the site but no bleeding and it flushes well. JOANN wrap was applied for comfort at patient stated it was bothering her and a little uncomfortable. Patient states she was up all night having to use the restroom and is tired today. No other needs were expressed at this time. Call light is in reach. Will continue to monitor.
[2020-12-09 09:12] LABS: LYMPHOCYTE 9 % (20.0-51.0); NEUTROPHILS 90 % (42.0-75.2); PLATELET ESTIMATE NORMAL (NORMAL)
[2020-12-09 09:17] LABS: HYPOCHROMIA 1+
[2020-12-09 11:06] VITALS: BP 119/61; PULSE 91; TEMP 97.7
[2020-12-09 16:07] VITALS: BP 118/65; PULSE 94; TEMP 97.9
--- NOTE | 2020-12-09 16:20 | NUR ---
PT/OT are recommending home health. CHITAR met with the patient to discuss home health and it's benefits. The patient states that she feels comfortable returning home with her daughter and has all the supplies/equipment she needs. She reports that she had home health in the past and it was not very helpful for her. She reports she really does not think she needs home health upon discharge. SW encouraged the patient to think about it and provided her with Medicare.gov's list of home health agencies that serve [place]. CHITRA to continue to follow.
--- NOTE | 2020-12-09 17:21 | NUR ---
Patient has had an uneventful shift. No complaints of pain or discomfort were expressed. Patient has been boosted in bed and up to [facility] with no issues. patient assisted with ordering dinner and has been positioned for eating. IV site remains CD&I. SCDs in place. Will continue to monitor. CAll light is in reach.
[2020-12-09 19:17] LABS: PROCALCITONIN <0.05 ng/mL (0.00-0.09)
[2020-12-09 21:21] VITALS: BP 136/74; PULSE 98; TEMP 98.3
[2020-12-10 00:09] VITALS: BP 149/78; PULSE 91; TEMP 97.3
[2020-12-10 03:15] VITALS: BP 156/81; PULSE 82; TEMP 97.4
--- NOTE | 2020-12-10 06:31 | NUR ---
PATIENT STATED SHE SLEPT BETTER LAST NIGHT THAN THE NIGHT BEFORE. TYLENOL ADMINISTERED FOR A HEADACHE. NO NEW ISSUES NOTED OR REPORTED BY PATIENT.
[2020-12-10 07:19] LABS: HEMOGLOBIN 12.3 g/dl (12.5-16.0); MEAN CELL VOLUME 90 fl (80.0-100.0); MEAN CORPUSCULAR HEMOGLOBIN 30 pg (27.0-31.0); MEAN CORPUSCULAR HGB CONC 34 g/dl (33.0-37.0); MEAN PLATELET VOLUME 11.1 fl (7.4-10.4); PLATELET COUNT 174 K/mm3 (130-400); RED BLOOD COUNT 4.04 M/mm3 (4.10-5.30); REDCELL DISTRIBUTION WIDTH-CV 13.7 % (11.5-14.5)
[2020-12-10 07:23] LABS: HEMATOCRIT 36.4 % (37.0-47.0)
[2020-12-10 07:32] LABS: CALCIUM 9.2 mg/dL (8.4-10.2); CHOLESTEROL RISK RATIO 3.2; CREATININE, serum 0.53 (0.52-1.25); POTASSIUM 4.3 mmol/L (3.4-5.0)
[2020-12-10 07:41] VITALS: BP 149/81; PULSE 73; TEMP 97.5
[2020-12-10 07:46] LABS: LYMPHOCYTE 6 % (20.0-51.0); NEUTROPHILS 93 % (42.0-75.2)
[2020-12-10 07:52] LABS: PLATELET ESTIMATE NORMAL (NORMAL)
--- NOTE | 2020-12-10 09:31 | NUR ---
Assessment complete. Patient sitting up for breakfast at this time. no complaints of paim or discomfort were expressed. Patient states she had a better night of sleep. She is aware of her POC at this time. Breath sounds were diminished and coarse in the bases, breaths are short and shallow but pt does not feel SOB at rest, only on exersion. Patient continues to use the BSC to void with no issues. Fall precautions are in place. no other needs were expressed. Call light is in reach.
--- NOTE | 2020-12-10 10:12 | NUR ---
Assesment as charted. Pt resting in bed upon arrival. Pt expressed dull ZIMMER, no other pain at this time. Pt on 2L O2 via nasal canula 97%. Lung sounds diminished at bases. INT site intact, no redness, or edema in right forearm. SCD not on at this time. Edema present in bilateral upper extremities.
[2020-12-10 10:55] VITALS: BP 135/72; PULSE 86; TEMP 97.4
--- NOTE | 2020-12-10 11:48 | NUR ---
First visit from the chief clerk. No needs right now.
[2020-12-10 15:09] LABS: ALDOLASE 3.4 U/L (<7.7)
[2020-12-10 16:35] VITALS: BP 124/66; PULSE 89; TEMP 97.5
--- NOTE | 2020-12-10 17:20 | NUR ---
Patient has had an uneventful shift. Complaints of a minor dull headache, PRN tylenol provided at this time. Patient requested a sandwich box for dinner, this was provided to her. SCDs in place. Patient repostitioned in bed at this time in order to eat, TV on for her. No other needs were expressed at this time. Call light is in reach. Bed alarm is set.
[2020-12-10 19:24] VITALS: BP 133/68; PULSE 87; TEMP 97.8
[2020-12-11] VITALS (7 sets, daily range): BP systolic 126–147; BP diastolic 69–81; PULSE 84–99; TEMP 97.4–98.2
--- NOTE | 2020-12-11 06:20 | NUR ---
NO NEW ISSUES NOTED OR REPORTED BY PATIENT. RESTED IN BED THROUGHOUT THE NIGHT GETTING UP TO THE BSC SEVERAL TIMES TO URINATE.
[2020-12-11 07:37] LABS: BASO % 0.1 % (0.0-2.0); GRAN # 6.5 (1.4-6.5); GRAN % 88.2 % (42.2-75.2); HEMOGLOBIN 11.6 g/dl (12.5-16.0); LYMPH # 0.6 (1.2-3.4); LYMPH % 7.8 % (20.0-51.0); MEAN CELL VOLUME 91 fl (80.0-100.0); MEAN CORPUSCULAR HEMOGLOBIN 30 pg (27.0-31.0); MEAN CORPUSCULAR HGB CONC 33 g/dl (33.0-37.0); MEAN PLATELET VOLUME 10.7 fl (7.4-10.4); MONO # 0.3 (0.1-0.6); MONO % 3.4 % (1.7-9.3); PLATELET COUNT 163 K/mm3 (130-400); RED BLOOD COUNT 3.84 M/mm3 (4.10-5.30); REDCELL DISTRIBUTION WIDTH-CV 13.8 % (11.5-14.5)
[2020-12-11 07:54] LABS: CALCIUM 8.8 mg/dL (8.4-10.2); CREATININE, serum 0.44 (0.52-1.25); POTASSIUM 4.2 mmol/L (3.4-5.0)
[2020-12-11 07:59] LABS: HEMATOCRIT 34.9 % (37.0-47.0)
--- NOTE | 2020-12-11 08:33 | NUR ---
Assessment as charted. Pt resting upon arrival. No pain at this time. Lung sounds diminished at the bases. O2 on at 2L via nasal canula @ 96% no SOB @ rest. INT site intact, no redness, or edmea in right forearm. Edmea noted to bilateral hands.
--- NOTE | 2020-12-11 11:29 | NUR ---
pt c/o itching and burning at IV site. Spoke with [facility] pharmacist and she said to stop infusion and restart after waiting for symptoms to resolve. Removed astrid wrap and stopped infusion. Explained to pt to notify nursing when itching and burning subsided.
--- NOTE | 2020-12-11 18:38 | NUR ---
REPORT TO PANCHO GALVAN
[2020-12-12 04:48] VITALS: BP 137/83; PULSE 80; TEMP 97
[2020-12-12 06:56] LABS: HEMOGLOBIN 12.2 g/dl (12.5-16.0); MEAN CELL VOLUME 91 fl (80.0-100.0); MEAN CORPUSCULAR HEMOGLOBIN 30 pg (27.0-31.0); MEAN CORPUSCULAR HGB CONC 33 g/dl (33.0-37.0); MEAN PLATELET VOLUME 11.1 fl (7.4-10.4); PLATELET COUNT 165 K/mm3 (130-400); RED BLOOD COUNT 4.05 M/mm3 (4.10-5.30); REDCELL DISTRIBUTION WIDTH-CV 13.7 % (11.5-14.5)
[2020-12-12 06:57] LABS: CREATININE, serum 0.42 (0.52-1.25); POTASSIUM 4.3 mmol/L (3.4-5.0)
[2020-12-12 07:03] LABS: HEMATOCRIT 36.7 % (37.0-47.0)
[2020-12-12 07:22] VITALS: BP 150/78; PULSE 75; TEMP 97.9
[2020-12-12 07:28] LABS: LYMPHOCYTE 11 % (20.0-51.0); NEUTROPHILS 87 % (42.0-75.2); PLATELET ESTIMATE NORMAL (NORMAL)
[2020-12-12] MEDS ORDERED: NYSTATIN OR100 MU/ML PO (07:55)
--- NOTE | 2020-12-12 10:50 | NUR ---
AGREE WITH STUDENT ARIANA'S ASSESSMENTS THIS AM.
[2020-12-12 11:51] VITALS: BP 132/80; PULSE 95; TEMP 98.1
--- NOTE | 2020-12-12 14:00 | NUR ---
Primary nurse was assisted with [phone] patient care by [employer] student Anjali Arroyo and [employer] instructor More Meeks MSN, RN.
[2020-12-12 15:59] VITALS: BP 134/64; PULSE 64; TEMP 98.1
--- NOTE | 2020-12-12 16:17 | NUR ---
The patient is to tentatively d/c tomorrow, 12/13. SW met with the patient to review d/c plan and to discuss home health and all of it's benefits. The patient states that home health made her feel depressed last time and she does what home health does. She states that she checks her pulse ox, does her exercises, and sets up her meds. She refused home health. She plans on returning back home with her daughter. SW updated the PA.
[2020-12-12] MEDS ORDERED: PREDNISONE20 MG PO (17:06)
[2020-12-12 20:17] VITALS: BP 114/60; PULSE 115; TEMP 98.2
--- NOTE | 2020-12-12 20:50 | NUR ---
Patient assessed at this time. Alert and oriented x 4, and able to make needs known. Denies having pain and discomfort at this time. Peripheral INT to left forearm flushed. Site without redness, warmth, swelling, and pain. Denies having SOB and dyspnea at rest, but does with exertion. LS CTA in upper lobes, diminished in lower. Respirations even and unlabored. On oxygen at 2 L/min via NC, which is baseline for patient. HRR. Capillary refill less than 3 seconds. Non-tenting skin turgor. BSAx4. Abdomen soft and non-tender. No edema. Voices no questions, needs, or concerns at this time. Resting in bed with call light within reach.
[2020-12-12 23:36] VITALS: BP 125/70; PULSE 98; TEMP 98.5
[2020-12-13 04:03] VITALS: BP 146/83; PULSE 97; TEMP 97.3
--- NOTE | 2020-12-13 05:49 | NUR ---
Patient has been resting in bed with call light within reach. Has denied having pain and discomfort this shift. Continues on oxygen at 2 L/min via NC. Voices no questions, needs, or concerns at this time.
[2020-12-13 07:10] LABS: BASO % 0.1 % (0.0-2.0); GRAN # 8.2 (1.4-6.5); GRAN % 78.9 % (42.2-75.2); HEMOGLOBIN 11.7 g/dl (12.5-16.0); LYMPH # 1.4 (1.2-3.4); LYMPH % 13.6 % (20.0-51.0); MEAN CELL VOLUME 92 fl (80.0-100.0); MEAN CORPUSCULAR HEMOGLOBIN 30 pg (27.0-31.0); MEAN CORPUSCULAR HGB CONC 33 g/dl (33.0-37.0); MEAN PLATELET VOLUME 11.3 fl (7.4-10.4); MONO # 0.7 (0.1-0.6); MONO % 6.8 % (1.7-9.3); PLATELET COUNT 168 K/mm3 (130-400); RED BLOOD COUNT 3.89 M/mm3 (4.10-5.30); REDCELL DISTRIBUTION WIDTH-CV 14.1 % (11.5-14.5)
[2020-12-13 07:17] LABS: HEMATOCRIT 35.7 % (37.0-47.0)
[2020-12-13 07:24] LABS: CALCIUM 8.6 mg/dL (8.4-10.2); CREATININE, serum 0.65 (0.52-1.25); POTASSIUM 4.1 mmol/L (3.4-5.0)
[2020-12-13 08:52] VITALS: BP 133/79; PULSE 94; TEMP 98.6
--- NOTE | 2020-12-13 09:38 | NUR ---
The patient is to discharge back home with her daughter today, 12/13. SW met with the patient and presented and read the IM form outloud to her. The patient verbalized understanding and gave SW approval to sign the form on her behalf. SW provided her with a copy. No additional needs at this time.
--- NOTE | 2020-12-13 11:35 | NUR ---
Discharge instructions reviewed with the patient, instructed to follow up with PCP and PUlm as we have scheudled for her, discussed new medications and new scripts sent to pharmacy for her, IV removed, patients family will be her to pick her up around 1400, I will escort her out when her ride arrives
--- NOTE | 2020-12-13 13:42 | NUR ---
Primary nurse was assisted with [phone] patient care by [employer] student Anjali Arroyo and [employer] instructor More Meeks MSN, RN.
[2020-12-23] MEDS ORDERED: VENTOLIN0.09 MG IH (15:56)
== END 2020-12-13 14:53 | disposition home or self-care (01) | DRG 197 ==
LOC: COL.ER 11:14 → MEDICAL 16:07 → SURG 12-12 07:09 → MEDICAL 12-12 08:58
PROVIDERS: Internal Medicine Pulmonary Disease; Nurse Practitioner; Physician Assistant; ADMIT Family Medicine
DX: J84.9 Interstitial pulmonary disease, unspecified (principal); J96.11 Chronic respiratory failure with hypoxia; B37.0 Candidal stomatitis; E87.1 Hypo-osmolality and hyponatremia; I50.32 Chronic diastolic (congestive) heart failure; J44.1 Chronic obstructive pulmonary disease with (acute) exacerbation; J84.10 Pulmonary fibrosis, unspecified; J84.114 Acute interstitial pneumonitis; K59.00 Constipation, unspecified; I11.0 Hypertensive heart disease with heart failure; E78.5 Hyperlipidemia, unspecified; E11.9 Type 2 diabetes mellitus without complications; I25.10 Atherosclerotic heart disease of native coronary artery without angina pectoris; E03.9 Hypothyroidism, unspecified; J45.30 Mild persistent asthma, uncomplicated; F32.9 Major depressive disorder, single episode, unspecified; G47.33 Obstructive sleep apnea (adult) (pediatric); Z88.6 Allergy status to analgesic agent; Z99.81 Dependence on supplemental oxygen; M19.90 Unspecified osteoarthritis, unspecified site; Z87.891 Personal history of nicotine dependence; Z20.822 Contact with and (suspected) exposure to COVID-19; Z79.84 Long term (current) use of oral hypoglycemic drugs; Z79.82 Long term (current) use of aspirin
CPT/HCPCS: 99232-AI; 99233-AI; 99239; G0378; J1650; J1815; J1956; J2270; J2405; J2920; J2930; J7040; J7050; J7512; Q9967

== ENCOUNTER 2020-12-17 21:37 | Inpatient (IN) | payer MEDICARE, BC ==
[~2020-12-17] VITALS: Ht 160 cm; Wt 62.7 kg
[~2020-12-17 21:37] MED LIST changes: +NYSTATIN OR100 MU/ML PO
[2020-12-17 22:00] LABS: BASO % 0.1 % (0.0-2.0); EOS % 0.1 % (0-4.0); GRAN # 12.2 (1.4-6.5); GRAN % 87.5 % (42.2-75.2); HEMATOCRIT 37.5 % (37.0-47.0); HEMOGLOBIN 12.5 g/dl (12.5-16.0); LYMPH % 7.4 % (20.0-51.0); MEAN CELL VOLUME 91 fl (80.0-100.0); MEAN CORPUSCULAR HEMOGLOBIN 30 pg (27.0-31.0); MEAN CORPUSCULAR HGB CONC 33 g/dl (33.0-37.0); MONO # 0.6 (0.1-0.6); MONO % 4.5 % (1.7-9.3); PLATELET COUNT 223 K/mm3 (130-400); RED BLOOD COUNT 4.13 M/mm3 (4.10-5.30); REDCELL DISTRIBUTION WIDTH-CV 13.5 % (11.5-14.5)
[2020-12-17 22:11] LABS: ALANINE AMINOTRANSFERASE 24 U/L (4-34); ALKALINE PHOSPHATASE 55 U/L (50-136); ANION GAP 6 mmol/L (7-16); AST,SGOT 22 U/L (15-37); BILIRUBIN,TOTAL 0.7 mg/dL (0.0-1.0); BLOOD UREA NITROGEN 17 mg/dL (7-17); CALCIUM 8.9 mg/dL (8.4-10.2); CARBON DIOXIDE 31 mmol/L (22-30); CHLORIDE 92 mmol/L (98-107); CREATININE, serum 0.45 (0.52-1.25); GLUCOSE 156 mg/dL (74-106); POTASSIUM 4.6 mmol/L (3.4-5.0); SODIUM 129 mmol/L (137-145); TOTAL PROTEIN 6.6 gm/dL (6.4-8.2)
[2020-12-17 22:13] LABS: PROTHROMBIN TIME 11.4 SECONDS (9.7-12.8)
[2020-12-17 22:24] LABS: TROPONIN-I < 0.012 ng/mL (0.000-0.035)
[2020-12-17 22:30] LABS: STREP SCREEN NEGATIVE
[2020-12-18] MEDS ORDERED: SYNTHROID0.075 MG/T PO (02:18)
[2020-12-18] MEDS ORDERED: OFEV150 MG PO (02:22)
[2020-12-18 03:43] VITALS: BP 154/77; PULSE 81; TEMP 97.7
--- NOTE | 2020-12-18 03:52 | NUR ---
Admitted from ER with DX pulmonary fibrosis, SOA, o2 3L/nc with sats of 98%, having trouble swallowing-states throat hurts- failed swallow eval in ER,, will keep NPO, Understands to use call light for assistance to BSC, INT to right AC- Sonia LEE will be up to write orders on patient.
--- NOTE | 2020-12-18 06:00 | NUR ---
States pain to throat 04/12- will give Morphine 1mg at this time for throat pain,, No other requests, IV fluids remain at 60cc/hr-
[2020-12-18 07:32] VITALS: BP 132/66; PULSE 79; TEMP 97.9
--- NOTE | 2020-12-18 11:00 | NUR ---
Patient continues to have pain in her neck/troat. She did not want pain medication, she stated it makes her throat feel dryer. Denies nausea. She is able to talk but only to answer yes and no questions. She is weak but is able to get up to the BSC with help. Patients daughter is asking for an update from the physician, let Dr Macias know. She keeps calling and asking the same questions, answered the questions I was able to. No other changes at this time. Call light within reach.
[2020-12-18 11:50] VITALS: BP 154/82; PULSE 75; TEMP 97.8
[2020-12-18 16:22] VITALS: BP 124/59; PULSE 81; TEMP 97.8
--- NOTE | 2020-12-18 16:47 | NUR ---
Butcher Helper met with patient to discuss discharge planning. Patient lives in [place] with her daughter, Diana (ph#[phone]) [address]. Dan for primary care. Patient is a readmit and was here 12/07/20-12/13/20. Patient did not see Dr. Dan in between stays. Patient reports that she did take her medications as prescribed. Patient obtains medications from [facility]. Patient uses a walker, bedside commode, and lift chair at home. Patient reports she also has grab bars in the bathroom. Patient reports she is mostly independent with ADLS. Patient has DPOA-HC in EMR which designates her other children, Leanna and Manav. Patient states she plans to return home with her daughter upon discharge. SW dicussed home health with the patient and the benefits of HH services. Patient declines at this time but states she will think about it. Patient states last time she had HH services it was depressing. CHITRA contacted patient's daughter, Diana to discuss discharge plan. Diana is in agreement with patient returning home upon discharge. Diana states she wants to give her mother a break and does not want to bring up HH services with her again at this time. Diana states they have a list at home they can review if needed.
--- NOTE | 2020-12-18 18:00 | NUR ---
Patient has been doing well this afternoon. No complaints of nausea. Pain has been better this afternoon. She worked with [facility] and they said she could eat a regular diet, no restrictions. She is eating supper at this time. Denies pain with swallowing. Encouraged her to eat slowly. Let Dr Macias know again that the daughter wants an update. No other changes at this time. Call light within reach.
[2020-12-18 19:28] VITALS: BP 121/65; PULSE 86; TEMP 97.4
[2020-12-19] VITALS (7 sets, daily range): BP systolic 101–152; BP diastolic 53–73; PULSE 79–103; TEMP 97.5–98
--- NOTE | 2020-12-19 01:22 | NUR ---
Patient resting in bed upon enter the room around 8 am. Shift assessment completed. Patient A/O x3. Patient denies any pain or discomfort. Denies SOB while at rest. Patient currently on 3L oxygen via NC. No acute respiratory distress noted. Patient did not have peripheral IV and lots bruises noted to bilateral arms. motorcycle repair shop supervisor inserted 24G IV to right forearm. IV fluid started at 60ml/hr. All scheduled meds given per DEC. Patient swollowed pill without difficulty. Assisted patient to use bed-side commode. Weak and unsteady gait noted. Bed-alarms on, Call light within reach. Patient denies any needs.
--- NOTE | 2020-12-19 05:40 | NUR ---
Patient c/o sore throat around midnight. Chloraseptic spray given around 0100 am and 03:00 am. Patient awake at 05:00 am. Patient states sore throat is a little better this morning. VS maintains stable throughout the night. Call light within reach. Patient denies any needs at this time.
[2020-12-19 06:34] LABS: HEMOGLOBIN 11.8 g/dl (12.5-16.0); MEAN CELL VOLUME 91 fl (80.0-100.0); MEAN CORPUSCULAR HEMOGLOBIN 30 pg (27.0-31.0); MEAN CORPUSCULAR HGB CONC 33 g/dl (33.0-37.0); MEAN PLATELET VOLUME 10.3 fl (7.4-10.4); PLATELET COUNT 197 K/mm3 (130-400); RED BLOOD COUNT 3.88 M/mm3 (4.10-5.30); REDCELL DISTRIBUTION WIDTH-CV 13.5 % (11.5-14.5)
[2020-12-19 06:36] LABS: HEMATOCRIT 35.3 % (37.0-47.0)
[2020-12-19 06:48] LABS: CALCIUM 8.7 mg/dL (8.4-10.2); CREATININE, serum 0.48 (0.52-1.25); POTASSIUM 3.8 mmol/L (3.4-5.0)
[2020-12-19 07:00] LABS: BAND 5 % (0-10); LYMPHOCYTE 6 % (20.0-51.0); NEUTROPHILS 87 % (42.0-75.2); PLATELET ESTIMATE NORMAL (NORMAL)
--- NOTE | 2020-12-19 08:38 | NUR ---
Patient sitting up in bed. Alert and oriented x3. Assessment complete. Patient denies pain at this time. Denies further needs at this time.
--- NOTE | 2020-12-19 12:17 | NUR ---
First visit from the fringe knotter. No needs right now.
--- NOTE | 2020-12-19 17:57 | NUR ---
Patient doing well throughout the day. Has been up to recliner for meals. Updated daughter on patient status. Denies pain through the day. Denies further needs at this time. Will report off to night filler.
--- NOTE | 2020-12-20 02:27 | NUR ---
PATIENT LYING AWAKE IN ROOM FEELIN ANXIOUS WANTS HER PSYCH SHOT, 1 MG MORPHINE GIVEN IV, PATIENT IS NOW RELAXED AND READY FOR SLEEPING
[2020-12-20 04:18] VITALS: BP 131/69; PULSE 78; TEMP 97.5
[2020-12-20 06:56] LABS: BASO % 0.1 % (0.0-2.0); EOS # 0.1 (0.0-0.7); EOS % 0.7 % (0-4.0); GRAN # 7.7 (1.4-6.5); HEMOGLOBIN 11.4 g/dl (12.5-16.0); LYMPH # 2.3 (1.2-3.4); LYMPH % 20.5 % (20.0-51.0); MEAN CELL VOLUME 92 fl (80.0-100.0); MEAN CORPUSCULAR HEMOGLOBIN 30 pg (27.0-31.0); MEAN CORPUSCULAR HGB CONC 33 g/dl (33.0-37.0); MONO % 9.2 % (1.7-9.3); PLATELET COUNT 185 K/mm3 (130-400); RED BLOOD COUNT 3.75 M/mm3 (4.10-5.30)
[2020-12-20 06:59] LABS: HEMATOCRIT 34.5 % (37.0-47.0)
[2020-12-20 07:03] LABS: CALCIUM 8.4 mg/dL (8.4-10.2); CREATININE, serum 0.56 (0.52-1.25); POTASSIUM 3.6 mmol/L (3.4-5.0)
[2020-12-20 08:29] VITALS: BP 144/68; PULSE 76; TEMP 98
--- NOTE | 2020-12-20 08:40 | NUR ---
Patient in bed resting. Alert and oriented x 3. Assessment complete. States her throat is sore this AM. Offered chloraseptic spray, patient refuses at this time. Assisted patient to order breakfast. Patient up to BSC with SBA. Denies further needs at this time.
--- NOTE | 2020-12-20 10:13 | NUR ---
Patient up to recliner with PT. Denies needs at this time.
[2020-12-20] MEDS ORDERED: PREDNISONE20 MG PO (10:34)
[2020-12-20] MEDS ORDERED: LIPITOR 10MG10 MG PO (10:36)
--- NOTE | 2020-12-20 10:49 | NUR ---
Dr. Macias in to see patient.
[2020-12-20 11:52] VITALS: BP 98/55; PULSE 105; TEMP 98.4
--- NOTE | 2020-12-20 12:05 | NUR ---
Discharge education provided to patient. Educated on new medication and when to call provider. Educated patient on follow up appointments and use of oxygen. All questions answered. Contacted Dr. Ortiz per patient request and reviewed discharge instructions. Assisted patient to dress and order lunch. Patient waiting on ride.
--- NOTE | 2020-12-20 13:00 | NUR ---
Patient out by wheelchair with medical staff
--- NOTE | 2020-12-20 14:57 | NUR ---
Patient discharged home with her daughter today. Disc Inspector contacted CHITRA Das at Dr. Dan's office to notify her of discharge and to advise that patient declined Home Health services during this stay. Pippa will collaborate with Dr. Dan about bringing up home health during follow up visit.
[2020-12-23] MEDS ORDERED: VENTOLIN0.09 MG IH (15:56)
== END 2020-12-20 13:00 | disposition home or self-care (01) | DRG 200 ==
LOC: COL.ER 21:37 → MEDICAL 12-18 01:17
PROVIDERS: Family Medicine; Physician Assistant; Student in an Organized Health Care Education/Training Program; ADMIT Hospitalist
DX: J98.2 Interstitial emphysema (principal); J96.11 Chronic respiratory failure with hypoxia; B37.0 Candidal stomatitis; B37.81 Candidal esophagitis; E87.1 Hypo-osmolality and hyponatremia; I50.32 Chronic diastolic (congestive) heart failure; E44.0 Moderate protein-calorie malnutrition; Z66 Do not resuscitate; D72.829 Elevated white blood cell count, unspecified; T38.0X5A Adverse effect of glucocorticoids and synthetic analogues, initial encounter; Z99.81 Dependence on supplemental oxygen; K59.00 Constipation, unspecified; I11.0 Hypertensive heart disease with heart failure; E78.5 Hyperlipidemia, unspecified; I25.10 Atherosclerotic heart disease of native coronary artery without angina pectoris; E11.9 Type 2 diabetes mellitus without complications; E03.9 Hypothyroidism, unspecified; K21.9 Gastro-esophageal reflux disease without esophagitis; F32.9 Major depressive disorder, single episode, unspecified; Z88.6 Allergy status to analgesic agent; Z88.7 Allergy status to serum and vaccine; Z79.84 Long term (current) use of oral hypoglycemic drugs; Z79.82 Long term (current) use of aspirin; Z87.891 Personal history of nicotine dependence; Z68.23 Body mass index [BMI] 23.0-23.9, adult
CPT/HCPCS: 99223-AI; 99232-AI; 99239; J1100; J1650; J1815; J2270; J2920; J7030; J7512; Q9967

== ENCOUNTER 2021-03-01 22:36 | Observation (INO) | payer MEDICARE, BC ==
[~2021-03-01] VITALS: Ht 160 cm; Wt 61.4 kg
[~2021-03-01 22:36] MED LIST changes: +LIPITOR 10MG10 MG PO; +SYNTHROID0.075 MG/T PO
[2021-03-02 00:26] LABS: BASO % 0.2 % (0.0-2.0); EOS # 0.1 (0.0-0.7); EOS % 0.9 % (0-4.0); GRAN # 10.1 (1.4-6.5); GRAN % 77.5 % (42.2-75.2); HEMATOCRIT 34.4 % (37.0-47.0); HEMOGLOBIN 11.5 g/dl (12.5-16.0); LYMPH # 1.8 (1.2-3.4); LYMPH % 13.9 % (20.0-51.0); MEAN CELL VOLUME 92 fl (80.0-100.0); MEAN CORPUSCULAR HEMOGLOBIN 31 pg (27.0-31.0); MEAN CORPUSCULAR HGB CONC 33 g/dl (33.0-37.0); MEAN PLATELET VOLUME 10.7 fl (7.4-10.4); MONO # 0.9 (0.1-0.6); PLATELET COUNT 229 K/mm3 (130-400); RED BLOOD COUNT 3.73 M/mm3 (4.10-5.30); REDCELL DISTRIBUTION WIDTH-CV 14.2 % (11.5-14.5)
[2021-03-02 00:51] LABS: BILIRUBIN,TOTAL 0.4 mg/dL (0.0-1.0); CALCIUM 9.1 mg/dL (8.4-10.2); CREATININE, serum 0.44 (0.52-1.25); POTASSIUM 3.7 mmol/L (3.4-5.0); TOTAL PROTEIN 7.2 gm/dL (6.4-8.2)
[2021-03-02 02:05] LABS: COLLECTION METHOD CLEAN CATCH
[2021-03-02 02:11] LABS: MUCOUS Present /lpf; PH 6 (5-8); URINE APPEARANCE Hazy; URINE BACTERIA None Seen /hpf; URINE BILIRUBIN Negative (NEGATIVE); URINE BLOOD Negative (NEGATIVE); URINE COLOR Yellow; URINE GLUCOSE Negative (NEGATIVE); URINE KETONE Negative (NEGATIVE); URINE LEUKOCYTE ESTERASE Negative (NEGATIVE); URINE NITRATE Negative (NEGATIVE); URINE PROTEIN(semi-quant) Negative (NEGATIVE); URINE RBC 0-2 /hpf; URINE UROBILINOGEN Negative (NEGATIVE)
--- NOTE | 2021-03-02 10:47 | NUR ---
Pt arrived to medical unit room 309 via stretcher around 1000. Settled into bed, oriented to room. Admission assessment complete and med rec updated. Pt reporting pain to right wrist 9/10 but declines medication at this time stating pain is tolerable. Call light in reach.
[2021-03-02 11:03] VITALS: BP 172/80; PULSE 69; TEMP 97.7
--- NOTE | 2021-03-02 14:09 | NUR ---
CHITRA informed by physician that patient just arrived and may need referrals faxed to nursing facilities due to patient's request. CHITRA met with patient to complete intake. Patient states that she currently lives with her daughter in [place] Diana [phone], but states her daughter is ill and since she is needing more care would like to see about moving to an assisted living facilty or halfway. She states that she does utilize a walker to get around, but doesn't need much help with ADL's. Patient states that her PCP is Dr. Dan, and pharmacy is [facility]. DPOA-HC is Leanna [phone], and Manav [phone]. CHITRA informed by nurse that daughter Diana called and requested to speak to SW. SW called Diana and stated that she spoke to her mother this morning and her mother did not mention requesting going to a facility. Daughter stated that she and her mother did speak of patient going to a facility in the near future. Daughter stated that she wanted to call [facility] to discuss. SW called [facility] D[facility] Manav to discuss patient's request of sending referrals to facility after speaking with Diana. Manav stated to proceed with with patient would like to do to see if she would be accepted into a facility, however he states that this is just preliminary and would like to discuss information with his mother. Plan: CHITRA sending referrals to [facility], [facility] per patient's request
[2021-03-02 15:39] VITALS: BP 145/75; PULSE 74; TEMP 97.6
[2021-03-02 20:21] VITALS: BP 115/53; PULSE 98; TEMP 97.6
[2021-03-02 20:26] VITALS: BP 133/69; PULSE 78; TEMP 98.6
--- NOTE | 2021-03-02 20:45 | NUR ---
Initial shift assessment done- states pain to wrist/neck 01/11,,will give [place] before bed per request- using bedpan-voiding without problems. IV fluids of NS at 60cc/hr. Edema noted to left forearm from a previous IV site- astrid wrap on.. Understands to call for assistance- using call light appropriately--bed alarm on
[2021-03-03] VITALS (7 sets, daily range): BP systolic 125–161; BP diastolic 64–86; PULSE 73–83; TEMP 97.4–98.2
--- NOTE | 2021-03-03 05:44 | NUR ---
Overall a quiet night-- at 0400 stated pain to right wrist was 10/10-very discouraged,,did give Minter as ordered-- within an hour pt states "that helped alot" VSS. used bedpan numerous times during the night to void- clear yellow urine.
[2021-03-03 07:15] LABS: BASO % 0.3 % (0.0-2.0); EOS # 0.1 (0.0-0.7); EOS % 0.5 % (0-4.0); GRAN # 7.3 (1.4-6.5); GRAN % 74.4 % (42.2-75.2); HEMOGLOBIN 10.9 g/dl (12.5-16.0); LYMPH # 1.5 (1.2-3.4); LYMPH % 15.2 % (20.0-51.0); MEAN CELL VOLUME 95 fl (80.0-100.0); MEAN CORPUSCULAR HEMOGLOBIN 31 pg (27.0-31.0); MEAN CORPUSCULAR HGB CONC 32 g/dl (33.0-37.0); MONO # 0.9 (0.1-0.6); MONO % 9.2 % (1.7-9.3); PLATELET COUNT 215 K/mm3 (130-400); RED BLOOD COUNT 3.56 M/mm3 (4.10-5.30); REDCELL DISTRIBUTION WIDTH-CV 13.9 % (11.5-14.5)
[2021-03-03 07:19] LABS: HEMATOCRIT 33.7 % (37.0-47.0)
[2021-03-03 07:21] LABS: CALCIUM 8.6 mg/dL (8.4-10.2); CREATININE, serum 0.42 (0.52-1.25); POTASSIUM 3.2 mmol/L (3.4-5.0)
--- NOTE | 2021-03-03 09:00 | NUR ---
Shift assessment complete. A&Ox4. Reports 6/10 pain to right wrist, worsens w/movement or touch. Also reports tenderness to bilateral feet w/touch. 1+ edema to feet, 2+ edema to left forearm and right wrist/hand. Heart RRR. Lungs CTA. A&Ox4. Reports no BMs for 3-4 days, senokot and miralax ordered. Continuing to monitor.
--- NOTE | 2021-03-03 17:58 | NUR ---
Pt had uneventful day. Splint placed to right wrist and pt reports good relief of pain since splint placement. Still says she plans to go home tomorrow but does express some concern about her weakness and how she will care for herself at home. Passed this on to .
--- NOTE | 2021-03-03 20:30 | NUR ---
Initial shift assessment done- states pain to right wrist is about a 3/10,,states its better with the wrist splint on. Will give [place] before bed as requested. Patient is talking alot about how she is too weak to go home and too much for her daughter to handle and she does want some type of residential care-- social work will see tomorrow.
[2021-03-04 02:51] VITALS: BP 153/71; PULSE 71; TEMP 97.6
--- NOTE | 2021-03-04 05:45 | NUR ---
Quiet night-- voided per bedpan during the night,, did not like the purewick option! VSS, denies pain at rest to right wrist- splint on
[2021-03-04 06:06] LABS: BASO % 0.2 % (0.0-2.0); EOS # 0.1 (0.0-0.7); EOS % 0.7 % (0-4.0); GRAN % 69.8 % (42.2-75.2); HEMOGLOBIN 10.8 g/dl (12.5-16.0); MEAN CELL VOLUME 94 fl (80.0-100.0); MEAN CORPUSCULAR HEMOGLOBIN 31 pg (27.0-31.0); MEAN CORPUSCULAR HGB CONC 33 g/dl (33.0-37.0); MEAN PLATELET VOLUME 10.1 fl (7.4-10.4); MONO # 0.9 (0.1-0.6); MONO % 8.7 % (1.7-9.3); PLATELET COUNT 211 K/mm3 (130-400); RED BLOOD COUNT 3.49 M/mm3 (4.10-5.30); REDCELL DISTRIBUTION WIDTH-CV 13.8 % (11.5-14.5)
[2021-03-04 06:16] LABS: CALCIUM 8.7 mg/dL (8.4-10.2); CREATININE, serum 0.4 (0.52-1.25); POTASSIUM 3.7 mmol/L (3.4-5.0)
[2021-03-04 06:26] LABS: HEMATOCRIT 32.9 % (37.0-47.0)
[2021-03-04 08:01] VITALS: BP 136/80; PULSE 71; TEMP 97.7
--- NOTE | 2021-03-04 10:43 | NUR ---
CHITRA consulted [place], with [facility]. Awaiting screen.
[2021-03-04 11:34] VITALS: BP 135/77; PULSE 73; TEMP 98
--- NOTE | 2021-03-04 14:41 | NUR ---
First visit from the music historian. No needs right now.
[2021-03-04 16:24] VITALS: BP 130/75; PULSE 80; TEMP 98.6
--- NOTE | 2021-03-04 16:29 | NUR ---
The patient is observation status. CHITRA met with the patient to review d/c plan and inform her that a SNF stay would be private pay. The patient reports that it would cost too much for her to private pay and that she would probably just have to return home. She states that she needs to talk to her son, Manav, first and see what he thinks. CHITRA followed up with Hiwot, from [facility]. Hiwot reports that the patient is declining to work with OT and the team felt like she would not participate in doing 3 hours of therapy a day. She states that she will check with their medical record specialist tomorrow and let CHITRA know. CHITRA faxed updates to [facility], [facility], and [facility]. CHITRA contacted Manav (ph#[phone]) to review the above. Manav reports that he is in [place] at this time, but will be up to the hospital tomorrow morning to discuss the options with the patient. He reports that he is unsure of what they will do at this time. CHITRA to follow up with the patient and Manav tomorrow morning.
[2021-03-04 19:25] VITALS: BP 145/78; PULSE 80; TEMP 98.1
--- NOTE | 2021-03-04 22:22 | NUR ---
ALERT AND OX3. DENIES SOA, LIGHTHEADED OR DIZZY. C.O WRIST PAIN AND NECK PAIN. RATING /10. SPLINT READJUSTED ELEVATED W PILLOW. NORCO FOR PAIN. PM MEDS GIVEN. POC DISCUSSED. IV RT AC FLUSHED. BLOOD SUGAR NOT TX PER SLIDING SCALE ORDER OF 114. NEEDS MET.
[2021-03-04 23:46] VITALS: BP 124/73; PULSE 86; TEMP 98.1
[2021-03-05 04:38] VITALS: BP 140/76; PULSE 79; TEMP 97.5
--- NOTE | 2021-03-05 05:19 | NUR ---
RESTED THROUGH THE NIGHT WITHOUT INCIDENT. NEEDS MET.
[2021-03-05 08:10] VITALS: BP 135/65; PULSE 79; TEMP 97.9
[2021-03-05 12:08] VITALS: BP 142/73; PULSE 81; TEMP 97.7
--- NOTE | 2021-03-05 12:10 | NUR ---
Assessment completed, alert/oriente, vital signs stable, still reporting some arthritic neck and wrist pains/ treating with [place] and tyelnol, heart RRR, lungs CTA, social work working on d/c planning with the family, will cotniue to monitor
[2021-03-05] MEDS ORDERED: TYLENOL 325MG325 MG PO (15:18)
[2021-03-05] MEDS ORDERED: LEADER CLE17 GM/Dose PO (15:20)
[2021-03-05] MEDS ORDERED: SENEXON-S 50-81 EACH PO (15:20)
[2021-03-05 15:31] VITALS: BP 142/73; PULSE 81; TEMP 97.7
--- NOTE | 2021-03-05 15:53 | NUR ---
Hiwot, with [facility], reports that they have declined the patient. CHITRA met with the patient, her son (Gera), and daughter (Diana) to update. CHITRA informed them of the options of private pay for SNF or home with home health and private duty services. The patient's son, Gera, reports that they plan on taking the patient home and they would be interested in home health services through [facility]. CHITRA contacted and faxed a referral to Cely at [facility]. CHITRA then attended clinical rounds. The patient's son and daughter informed the clinical team that the patient cannot even get to the bedside commode and they do not feel comfortable taking her home. CHITRA discussed the option of private paying for SNF. The patient's son reports that they do have the funds to private pay and would prefer [facility]. He reports that they have family members and friends there. CHITRA also discussed applying for Medicaid. The patient and her family were interested in this. CHITRA consulted financial counselor, Sonia. Sonia completed the application and emailed CHITRA the forms that the patient needs to sign. Sonia also provided CHITRA with a list of supporting documents that the patient's family would need to provide to her. CHITRA met with the patient and her son, Gera, and presented the forms and the list. The patient verbalized understanding and signed the forms. CHITRA emailed the forms back to Sonia. CHITRA contacted and faxed a referral to Jere at [facility]. Jere reports that they do not have a long-term care bed and would be unable to take the patient. CHITRA updated the patient and her son, Gera. They would like to try for [facility]. CHITRA notified and faxed updates to Massiel at [facility]. Massiel reports that they would be able to waive the 3 midnight Medicare rule, due to COVID and would be able to accept the patient. CHITRA updated the patient, Gera, and the clinical team. They were all agreeable to the plan for [facility] SNF. The patient is to discharge today, 03/05, to [facility] for an emergency admit skilled stay. Transportation was scheduled at 1545, via [facility]. CHITRA informed the patient, her RN, and the patient's son (eGra) of the time. They were all agreeable to the time. No additional needs at this time.
--- NOTE | 2021-03-05 16:00 | NUR ---
Patient transferring to [facility] SNF, IV and tele removed, family notified, COVID screen negative, I have attempted to call report, patient leaving with transportation personel from [facility] at this time
== END 2021-03-05 16:22 ==
LOC: COL.ER 22:36 → MEDICAL 03-02 02:59
PROVIDERS: Emergency Medicine; Nurse Practitioner; ADMIT Hospitalist
DX: M54.2 Cervicalgia (principal); M25.531 Pain in right wrist; R53.1 Weakness; K59.00 Constipation, unspecified; R53.81 Other malaise; J84.9 Interstitial pulmonary disease, unspecified; J96.11 Chronic respiratory failure with hypoxia; J44.9 Chronic obstructive pulmonary disease, unspecified; Z20.822 Contact with and (suspected) exposure to COVID-19; J84.10 Pulmonary fibrosis, unspecified; D72.829 Elevated white blood cell count, unspecified; E87.1 Hypo-osmolality and hyponatremia; I11.0 Hypertensive heart disease with heart failure; I50.30 Unspecified diastolic (congestive) heart failure; E78.5 Hyperlipidemia, unspecified; E11.9 Type 2 diabetes mellitus without complications; E03.9 Hypothyroidism, unspecified; K21.9 Gastro-esophageal reflux disease without esophagitis; Z66 Do not resuscitate; I25.10 Atherosclerotic heart disease of native coronary artery without angina pectoris; E87.6 Hypokalemia; B37.0 Candidal stomatitis; Z79.82 Long term (current) use of aspirin; Z79.890 Hormone replacement therapy; Z79.84 Long term (current) use of oral hypoglycemic drugs; Z79.899 Other long term (current) drug therapy; Z87.891 Personal history of nicotine dependence
CPT/HCPCS: G0378; J1650; J1815; J3010; J7030; J7512

== ENCOUNTER 2021-08-02 18:14 | Inpatient (IN) | payer MEDICARE, BC ==
[~2021-08-02] VITALS: Ht 160 cm; Wt 61.7 kg
[~2021-08-02 18:14] MED LIST changes: +LEADER CLE17 GM/Dose PO; +SENEXON-S 50-81 EACH PO
[2021-08-02 18:34] LABS: BASO % 0.6 % (0.0-2.0); EOS # 0.1 K/mm3 (0.0-0.7); EOS % 0.7 % (0-4.0); GRAN # 5.4 K/mm3 (1.4-6.5); GRAN % 78.5 % (42.2-75.2); HEMOGLOBIN 12.1 g/dl (12.5-16.0); LYMPH # 0.8 K/mm3 (1.2-3.4); LYMPH % 11.4 % (20.0-51.0); MEAN CELL VOLUME 90 fl (80.0-100.0); MEAN CORPUSCULAR HEMOGLOBIN 30 pg (27.0-31.0); MEAN CORPUSCULAR HGB CONC 34 g/dl (33.0-37.0); MEAN PLATELET VOLUME 9.3 fl (7.4-10.4); MONO # 0.6 K/mm3 (0.1-0.6); MONO % 8.2 % (1.7-9.3); PLATELET COUNT 185 K/mm3 (130-400); RED BLOOD COUNT 3.99 M/mm3 (4.10-5.30); REDCELL DISTRIBUTION WIDTH-CV 13.4 % (11.5-14.5)
[2021-08-02 18:35] LABS: HEMATOCRIT 35.7 % (37.0-47.0)
[2021-08-02 18:49] LABS: ALANINE AMINOTRANSFERASE 20 U/L (0-55); ALBUMIN 3.4 gm/dL (3.4-4.8); ALKALINE PHOSPHATASE 63 U/L (40-150); ANION GAP 9 mmol/L (7-16); AST,SGOT 17 U/L (5-34); BILIRUBIN,TOTAL 0.6 mg/dL (0.2-1.2); BLOOD UREA NITROGEN 8 mg/dL (10-20); CALCIUM 9.2 mg/dL (8.4-10.2); CARBON DIOXIDE 28 mmol/L (23-31); CHLORIDE 95 mmol/L (98-107); GLUCOSE 78 mg/dL (70-99); POTASSIUM 4.5 mmol/L (3.5-4.5); SODIUM 132 mmol/L (136-145); TOTAL PROTEIN 6.4 gm/dL (6.2-8.1)
[2021-08-02 18:57] LABS: TROPONIN-I < 0.010 ng/mL (0.00-0.033)
[2021-08-02 21:01] LABS: COLLECTION METHOD CLEAN CATCH
[2021-08-02 21:09] LABS: PH 7 (5-8); SQUAMOUS EPITHELIAL 0-2 /hpf; URINE APPEARANCE Clear; URINE BACTERIA None Seen /hpf; URINE BILIRUBIN Negative (NEGATIVE); URINE BLOOD Negative (NEGATIVE); URINE COLOR Yellow; URINE GLUCOSE Negative (NEGATIVE); URINE KETONE Trace (NEGATIVE); URINE LEUKOCYTE ESTERASE Negative (NEGATIVE); URINE NITRATE Negative (NEGATIVE); URINE PROTEIN(semi-quant) Negative (NEGATIVE); URINE RBC 0-2 /hpf; URINE WBC 0-2 /hpf
[2021-08-03 08:00] VITALS: BP 110/66; PULSE 71
[2021-08-03 10:07] VITALS: TEMP 98.1
--- NOTE | 2021-08-03 10:09 | NUR ---
PT RECEIVED ON FLOOR. PT VITAL SIGNS OBTAINED, ASSESSMENT COMPLETED. PT HAS BILATERAL UPPER AND LOWER EDEMA, NON-PITTING NOTED. PT HAS DIMINISHED LUNG SOUNDS AUSCULTATED IN RIGHT LOWER LOBE. PT ORIENTED TO ROOM, BREAKFAST ORDERED. NO OTHER NEEDS AT THIS TIME.
[2021-08-03 10:46] LABS: GRAN # 3.1 K/mm3 (1.4-6.5); LYMPH # 0.7 K/mm3 (1.2-3.4); LYMPH % 16.9 % (20.0-51.0); MEAN CELL VOLUME 93 fl (80.0-100.0); MEAN CORPUSCULAR HEMOGLOBIN 30 pg (27.0-31.0); MEAN CORPUSCULAR HGB CONC 33 g/dl (33.0-37.0); MEAN PLATELET VOLUME 9.7 fl (7.4-10.4); MONO # 0.1 K/mm3 (0.1-0.6); MONO % 1.8 % (1.7-9.3); PLATELET COUNT 186 K/mm3 (130-400); RED BLOOD COUNT 3.96 M/mm3 (4.10-5.30); REDCELL DISTRIBUTION WIDTH-CV 13.2 % (11.5-14.5)
[2021-08-03 10:48] LABS: HEMATOCRIT 36.7 % (37.0-47.0)
[2021-08-03 11:02] LABS: CALCIUM 8.8 mg/dL (8.4-10.2); CREATININE, serum 0.59 mg/dL (0.57-1.11); POTASSIUM 4.4 mmol/L (3.5-4.5)
[2021-08-03 12:00] VITALS: BP 111/57; PULSE 78; TEMP 98.1
--- NOTE | 2021-08-03 12:45 | NUR ---
NOTIFIED PHARMACY OF PT MEDICATION NOT BEING IN BIN. TO BE BROUGHT UP
--- NOTE | 2021-08-03 14:27 | NUR ---
SW met with patient to complete intake. Patient states that she lives at [facility] and plans to return there up on DC. Patient's point of contact is her daughter Sharon [phone]. Patient states that she does us a walker and obtains assistance when taking a shower. Patient provides her PCP is Dr. Dan, and pharmacy is [facility]. Noted DPOA-HC is Leanna Cordova [phone]. Patient has no concerns in regards to returning to [facility] up on DC. SW will continue to follow. DC plan: Returning to [facility]
--- NOTE | 2021-08-03 14:43 | NUR ---
PT DAUGHTER, WILLIAM RAYGOZA CALLED FOR PT UPDATE. PH([phone]). PRIVACY PASSWORD RECEIVED. DISCUSSED PT STATUS TO BEST OF ABILITY.
--- NOTE | 2021-08-03 15:49 | NUR ---
PT AMBULATED TO RESTROOM. MISSED HAT FOR OUTPUT COLLECTION. PT STATED FEELING SOA AFTER RETURNING TO BED, SPO2 OBTAINED 93% ON 2L. RESUMED QUICKLY TO 96%
--- NOTE | 2021-08-03 15:50 | NUR ---
SOME REDNESS NOTED INBETWEEN PT BUTTOCKS. PILLOW PLACED TO ALLEVIATE PRESSURE.
[2021-08-03 16:00] VITALS: BP 107/66; PULSE 82; TEMP 98.2
--- NOTE | 2021-08-03 17:19 | NUR ---
PT CALLED OUT STATING PRESSURE IN LEGS BILATERALLY. ASSESSED PULSES, 2+ BILATERALLY, CAP REFILL <3S BILATERALLY. PT DENIES PARESTHESIA, STATES ACHE. NEW TO PATIENT. ABLE TO MOVE LEGS, LIFT AND HOLD ON BED.
--- NOTE | 2021-08-03 19:34 | NUR ---
Pt continuing on plan of care. Pt able to ambulate to restroom, gait belt, walker, non-skid socks utilized. Pt vital signs remained stable this shift, no significant changes noted. Pt call light within reach, able to call for needs.
--- NOTE | 2021-08-03 20:00 | NUR ---
PT IN BED. NEW SL STARTED TO LEFT FOREARM ON FIRST ATTEMPT. HAS OXYGEN AT 2L/NC. LUNGS DIMINISHED. IS ALERT AND ORIENTED X4. WEARING DEPENDS. HAS RASH TO RT BUTTOCK, CORTISONE CR APPLIED.
[2021-08-03 20:17] VITALS: BP 121/67; PULSE 73; TEMP 97.8
[2021-08-03 23:33] VITALS: BP 137/67; PULSE 80; TEMP 97.4
[2021-08-04] MEDS ORDERED: HYDROCORTISONE30 G3 TP (00:03)
[2021-08-04] MEDS ORDERED: ZADITOR 5 ML5 ML OP (00:04)
[2021-08-04] MEDS ORDERED: PREDNISONE 5MG5 MG PO (00:05)
--- NOTE | 2021-08-04 00:08 | NUR ---
PT CONFUSED. ASKING WHERE HER ROOMMATE MARCH IS. REORIENTED TO PLACE AND TIME, LEFT LIGHT ON AT THIS TIME.
--- NOTE | 2021-08-04 01:37 | NUR ---
Pt incontinent of urine, linens changed, jose cares provided.
[2021-08-04 03:21] VITALS: BP 149/76; PULSE 84; TEMP 98
--- NOTE | 2021-08-04 05:58 | NUR ---
ES TYLENOL GIVEN FOR BACK PAIN. TAKES OTHER SCHEDULED MEDS AT THIS TIME. HAS BEEN ASSISTED TO BATHROOM TO VOID X2 SINCE BEING INCONTINENT.
[2021-08-04 07:41] VITALS: BP 141/68; PULSE 72; TEMP 97.5
--- NOTE | 2021-08-04 08:00 | NUR ---
PATIENT IS ORIENTED X2 BUT DISPLAYS SOME CONFUSION/FORGETFULNESS. PATIENT HAS HX OF CONFUSION AND LIVES AT [facility]. VSS WITH OXYGEN AT 2L PER NC. PATIENT WEARS OXYGEN 2-3L AT HOME DUE TO EXTENSIVE PULM HX INCLUDING PULM FIBROSIS. A&P LUNG REESE DEMINISHE IN BASES. PATIENT DENIES SOA. HEAD TO TOE ASSESSMENT COMPETE, SEE CHARTING. DNR STATUS. NO C/O N/V. BREAKFAST TRAY ORDERED. AM MEDS GIVEN. LEFT FORARM IV TO INT. NO OTHER NEEDS AT THIS TIME. CALL LIGHT IN REACH. BED ALARM ON.
--- NOTE | 2021-08-04 10:05 | NUR ---
Initial visit; Patient thanked Farm Product Purchaser for looking in on her and offering God's blessings and to keep her in Farm [employer] Purchaser's prayers.
[2021-08-04 11:28] VITALS: BP 121/67; PULSE 80; TEMP 97.6
--- NOTE | 2021-08-04 12:31 | NUR ---
Medical Anthropologist faxed clinical updates to Massiel at [facility] who advised they will try ot take patient back skilled in her house, the [facility] but if they can't, patient may need to go to the [facility]. JESUS Nguyen advised patient may be ready for DC tomorrow. CHITRA contacted patient's daughter, Diana to provide update. Discharge Plan: [facility]
[2021-08-04 15:17] VITALS: BP 128/65; PULSE 86; TEMP 98
[2021-08-04 19:33] VITALS: BP 133/66; PULSE 86; TEMP 98.1
[2021-08-04 23:51] VITALS: BP 144/61; PULSE 77; TEMP 97.5
[2021-08-05 03:18] VITALS: BP 123/78; PULSE 79; TEMP 98
--- NOTE | 2021-08-05 06:13 | NUR ---
REMAINS ON O2 @2L, NORCO GIVEN FOR PAIN X2, UP TO BATHROOM WITH WALKER AND SBA, BGM 178 THIS AM, 210 LAST NOC, C/0 ITCHING OF RASH ON RIGHT BUTTOCKS/SACRUM, HYDROCORTISONE APPLIED. ALERT AND ORIENTED X4, HOPING TO GO HOME TODAY.
[2021-08-05 06:50] LABS: BASO % 0.1 % (0.0-2.0); GRAN # 6.8 K/mm3 (1.4-6.5); GRAN % 88.2 % (42.2-75.2); HEMOGLOBIN 11.3 g/dl (12.5-16.0); LYMPH # 0.6 K/mm3 (1.2-3.4); LYMPH % 8.1 % (20.0-51.0); MEAN CELL VOLUME 89 fl (80.0-100.0); MEAN CORPUSCULAR HEMOGLOBIN 31 pg (27.0-31.0); MEAN CORPUSCULAR HGB CONC 34 g/dl (33.0-37.0); MEAN PLATELET VOLUME 9.9 fl (7.4-10.4); MONO # 0.3 K/mm3 (0.1-0.6); MONO % 3.2 % (1.7-9.3); PLATELET COUNT 227 K/mm3 (130-400); RED BLOOD COUNT 3.68 M/mm3 (4.10-5.30); REDCELL DISTRIBUTION WIDTH-CV 13.2 % (11.5-14.5)
[2021-08-05 06:53] LABS: HEMATOCRIT 32.9 % (37.0-47.0)
[2021-08-05 07:19] LABS: CALCIUM 8.8 mg/dL (8.4-10.2); CREATININE, serum 0.58 mg/dL (0.57-1.11); POTASSIUM 4.2 mmol/L (3.5-4.5)
[2021-08-05 07:39] VITALS: BP 143/81; PULSE 83; TEMP 97.3
[2021-08-05] MEDS ORDERED: PREDNISONE20 MG PO (09:31)
[2021-08-05] MEDS ORDERED: LEVAQUIN 750MG750 M1 PO (09:33)
[2021-08-05] MEDS ORDERED: TRIAM OI 15 0.025 TOP (09:41)
[2021-08-05 12:09] VITALS: BP 132/72; PULSE 90; TEMP 97.8
--- NOTE | 2021-08-05 12:46 | NUR ---
Patient is ready for discharge today and Massiel at [facility] advised they can accept patient skilled at the [facility]. CHITRA faxed clinical updates, negative covid results, and discharge orders to Massiel at [facility]. CHITRA set transport time for 1330 and provided that time to patient who is in agreement with discharge plan. CHITRA also contacted patient's daughter, Diana to provide update on discharge time. Discharge Plan: [facility] SNF
--- NOTE | 2021-08-05 13:40 | NUR ---
PATIENT DISCHARGING BACK TO [facility]. RN STUDENT DC'D IV SITE AND COVERED WITH [employer]. GAVE INFO PACKET TO [facility] SHORE WORKING SUPERVISOR. CALLED REPORT TO [facility] NURSE. PATIENT IS DRESSED, PACKED AND DISCHARGED.
== END 2021-08-05 13:40 | DRG 196 ==
LOC: COL.ER 18:14 → SURG 19:06
PROVIDERS: Emergency Medicine; Physician Assistant; Student in an Organized Health Care Education/Training Program; ADMIT Internal Medicine
PROC: 5A0935A Assistance with Respiratory Ventilation, Less than 24 Consecutive Hours, High Flow/Velocity Cannula (ICD-10-PCS; principal; 2021-08-04)
DX: J84.112 Idiopathic pulmonary fibrosis (principal); J96.21 Acute and chronic respiratory failure with hypoxia; J18.9 Pneumonia, unspecified organism; J44.1 Chronic obstructive pulmonary disease with (acute) exacerbation; I50.32 Chronic diastolic (congestive) heart failure; E87.1 Hypo-osmolality and hyponatremia; J44.0 Chronic obstructive pulmonary disease with (acute) lower respiratory infection; I11.0 Hypertensive heart disease with heart failure; E11.9 Type 2 diabetes mellitus without complications; E03.9 Hypothyroidism, unspecified; K59.00 Constipation, unspecified; E78.5 Hyperlipidemia, unspecified; I25.10 Atherosclerotic heart disease of native coronary artery without angina pectoris; K21.9 Gastro-esophageal reflux disease without esophagitis; L29.9 Pruritus, unspecified; F32.A Depression, unspecified; Z20.822 Contact with and (suspected) exposure to COVID-19; Z96.653 Presence of artificial knee joint, bilateral; Z79.82 Long term (current) use of aspirin; Z99.81 Dependence on supplemental oxygen; Z79.52 Long term (current) use of systemic steroids
CPT/HCPCS: 99232-AI; 99239; J1650; J1956; J2930; J7030

== ENCOUNTER 2021-08-22 09:03 | Inpatient (IN) | payer MEDICARE, BC ==
[~2021-08-22] VITALS: Ht 152.4 cm; Wt 66.7 kg
[~2021-08-22 09:03] MED LIST changes: +HYDROCORTISONE30 G3 TP; +PREDNISONE 5MG5 MG PO; +TRIAM OI 15 0.025 TOP; +ZADITOR 5 ML5 ML OP
[2021-08-22 09:26] LABS: MEAN CELL VOLUME 94 fl (80.0-100.0); MEAN CORPUSCULAR HEMOGLOBIN 31 pg (27.0-31.0); MEAN CORPUSCULAR HGB CONC 33 g/dl (33.0-37.0); MEAN PLATELET VOLUME 9.4 fl (7.4-10.4); PLATELET COUNT 357 K/mm3 (130-400); RED BLOOD COUNT 4.26 M/mm3 (4.10-5.30); REDCELL DISTRIBUTION WIDTH-CV 14.3 % (11.5-14.5)
[2021-08-22 09:38] LABS: ALANINE AMINOTRANSFERASE 6 U/L (0-55); ALBUMIN 3.6 gm/dL (3.4-4.8); ALKALINE PHOSPHATASE 81 U/L (40-150); ANION GAP 18 mmol/L (7-16); AST,SGOT 16 U/L (5-34); BILIRUBIN,TOTAL 1.2 mg/dL (0.2-1.2); BLOOD UREA NITROGEN 9 mg/dL (10-20); CALCIUM 9.9 mg/dL (8.4-10.2); CARBON DIOXIDE 20 mmol/L (23-31); CHLORIDE 96 mmol/L (98-107); CREATININE, serum 0.73 mg/dL (0.57-1.11); GLUCOSE 291 mg/dL (70-99); POTASSIUM 5.1 mmol/L (3.5-4.5); SODIUM 134 mmol/L (136-145); TOTAL PROTEIN 7.1 gm/dL (6.2-8.1)
[2021-08-22 09:48] LABS: TROPONIN-I < 0.010 ng/mL (0.00-0.033)
[2021-08-22 10:06] LABS: BAND 14 % (0-10); BASOPHIL 1 % (0-2); EOSINOPHIL 1 % (0-4); LYMPHOCYTE 24 % (20.0-51.0); NEUTROPHILS 57 % (42.0-75.2); PLATELET ESTIMATE NORMAL (NORMAL)
[2021-08-22 10:57] LABS: COLLECTION METHOD CLEAN CATCH
[2021-08-22 11:04] LABS: PH 6 (5-8); SQUAMOUS EPITHELIAL None Seen /hpf (0-10); URINE APPEARANCE Clear (CLEAR/HAZY); URINE BACTERIA None Seen (NONE SEEN); URINE BILIRUBIN Negative (NEGATIVE); URINE BLOOD Negative (NEGATIVE); URINE COLOR Yellow (YELLOW); URINE GLUCOSE Negative (NEGATIVE); URINE KETONE Trace (NEGATIVE); URINE LEUKOCYTE ESTERASE Negative (NEGATIVE); URINE NITRATE Negative (NEGATIVE); URINE PROTEIN(semi-quant) Negative (NEGATIVE); URINE RBC 0-2 /hpf (0-2)
[2021-08-22 11:08] LABS: MUCOUS Present (NOT PRESENT)
[2021-08-22 16:10] VITALS: BP 106/62; PULSE 90; TEMP 97.7
[2021-08-22] MEDS ORDERED: TYLENOL SU650 MG/SUP RC (18:00)
[2021-08-22] MEDS ORDERED: BENADRYL25 M2 PO (18:02)
[2021-08-22] MEDS ORDERED: DULCOLAX S10 MG/SUPP RC (18:03)
[2021-08-22] MEDS ORDERED: ZADITOR 5 ML5 ML OP (18:10)
[2021-08-22] MEDS ORDERED: NORCO 325 MG-51 TAB PO (18:15)
[2021-08-22] MEDS ORDERED: IMODIUM 2MG CAPS2 MG PO (18:16)
[2021-08-22] MEDS ORDERED: GOOD NEIGH1200 MG/15 PO (18:18)
[2021-08-22] MEDS ORDERED: ALMACONE 360 M360 ML PO (18:19)
--- NOTE | 2021-08-22 18:28 | NUR ---
PT NOT VERY RESPONSIVE, PUPILS REACTIVE 1MM IN SIZE, ALERT TO NAME, L SIDE BUTTON TACKER WEAKER, PT RESPONSES MUFFLED AND HARD TO UNDERSTAND, PT LIKE THIS WHEN PHYSICIAN ASSESSED HER AND IS AWARE, NO NEW ORDERS, ANX INFUSING. NO OTHER NEEDS
[2021-08-22 19:04] VITALS: BP 108/61; PULSE 80; TEMP 97.9
--- NOTE | 2021-08-22 22:35 | NUR ---
Patient assessed around 2100. Patient alert and talking. Disoriented to place (thought she was at [facility]). Denies pain and discomfort. PICC to RUE, INT to left AC. Denies SOB and dyspnea at this time. On oxygen at 2 L/min via NC. LS CTA in upper lobes, diminished in lower. Voices no questions, needs, or concerns at this time. Given food as requested. In bed with call light within reach. Bed alarm on.
[2021-08-22 23:37] VITALS: BP 109/59; PULSE 87; TEMP 97.5
[2021-08-23] VITALS (8 sets, daily range): BP systolic 97–126; BP diastolic 47–69; PULSE 62–107; TEMP 97.6–98.7
--- NOTE | 2021-08-23 05:49 | NUR ---
Patient has denied having pain and discomfort this shift. Assisted to bedside commode with two assist for BM this shift. PCT reports patient did well and had BM. Recieved IV ABX as Solumedrol per orders. On oxygen at 2-3 L/min via NC. Voices no questions, needs, or concerns at this time. In bed with call light within reach.
[2021-08-23 06:05] LABS: MEAN CELL VOLUME 95 fl (80.0-100.0); MEAN CORPUSCULAR HGB CONC 33 g/dl (33.0-37.0); MEAN PLATELET VOLUME 9.8 fl (7.4-10.4); RED BLOOD COUNT 3.16 M/mm3 (4.10-5.30); REDCELL DISTRIBUTION WIDTH-CV 14.3 % (11.5-14.5)
[2021-08-23 06:10] LABS: HEMOGLOBIN 9.8 g/dl (12.5-16.0); MEAN CORPUSCULAR HEMOGLOBIN 31 pg (27.0-31.0); PLATELET COUNT 206 K/mm3 (130-400)
[2021-08-23 06:25] LABS: CALCIUM 8.3 mg/dL (8.4-10.2); CREATININE, serum 0.58 mg/dL (0.57-1.11); POTASSIUM 3.4 mmol/L (3.5-4.5)
[2021-08-23 06:38] LABS: BAND 27 % (0-10); LYMPHOCYTE 1 % (20.0-51.0); METAMYELOCYTE 1 % (0-0); NEUTROPHILS 68 % (42.0-75.2); PLATELET ESTIMATE NORMAL (NORMAL)
[2021-08-23 06:39] LABS: HYPOCHROMIA 1+
--- NOTE | 2021-08-23 11:05 | NUR ---
PT HEART RATE 107, RECHECKED AT THIS TIME 91.
--- NOTE | 2021-08-23 11:08 | NUR ---
PT DENIES SOA, RESPIRATIONS 32. PT SPO2 91% ON 3L O2.
--- NOTE | 2021-08-23 11:15 | NUR ---
PT ALERT AND ORIENTED. PT STATES PAIN OVER COCCYX, SACRAL AREA, SKIN ASSESSMENT REDNESS, OPEN SORES, NO ACTIVE BLEEDING. PT HAS SCABS AND DISCOLORATION OVER SACRAL AREA. PT STATES FROM SHINGLES. PT HAS BILATERAL UPPER EXTREMITY EDEMA NOTED, NON-PITTING. BRUISE NOTED OVER LEFT GREAT TOE. PT HAS CLEAR UPPER LOBES, DIMINISHED RIGHT MIDDLE LOBE, AND FINE CRACKLES AUSCULTATED IN RIGHT LOWER LOBE. PT DENIES SOA AT THIS TIME. PT ABLE TO EAT BREAKFAST.
--- NOTE | 2021-08-23 11:33 | NUR ---
PT BLOOD PRESSURE LOW, RECHECKED MANUALLY AT THIS TIME, 102/62, MAP OF 75.
--- NOTE | 2021-08-23 11:34 | NUR ---
PT SPO2 NOTED AT 91%, READJUSTED CANNULA AND RE-CHECKED SPO2 AT THIS TIME, 100% ON 3L. TITRATED DOWN TO 2L.
--- NOTE | 2021-08-23 12:32 | NUR ---
Plans is to return to [facility] assisted living upon dc. SW met with patient about DC plan and care. Patient reports that she has a DTR and SON locally Cristina Monzon and Gera Rodriges who share DPOA. Patient reports that her PCP is Dr. Dan with last appt a week ago. Patient reports that she is on oxygen continuous 3 liters anywhere she goes. Patient shares that she has a walker and wheelchair and recently started using the wheelchair more often. RX obtained from [facility] but takes mainly tylenol for pain. Patient shares that when walking she becomes short of breath and her specialist is Dr. Berry for pulmunary support. Patient denies having any care concerns. Educated on services with case management NF>
--- NOTE | 2021-08-23 17:26 | NUR ---
PT CONTINUING ON PLAN OF CARE. PT HAD SEVERAL BOUTS OF STOOL INCONTINENCE THIS SHIFT, SMALL, SOFT FORMED TO MILD STOOLS. PT CLEANED WITH PERSONAL CLEANSING WIPES. BARRIER CREAM PLACED ON PT. PT ABLE TO CALL OUT FOR NEEDS. NO SIGNIFICANT CHANGES NOTED IN PT THIS SHIFT.
--- NOTE | 2021-08-23 22:48 | NUR ---
ALERT ANDOX3. DENIES SOA, CHEST PAIN OR DIZZY. C/O BACK PAIN AND WANT TO TAKE HER PAIN/SLEEP MED, WHICH WAS NORCO. SANDER RESTARTS. AC/HS BLOOD SUGAR OBTAINED. SANDWICH BOX PROVIDED. PT DID NOT LIKE DINNER SERVED. TREADWELL TO DD, YELLOW URINE. PM MEDS GIVEN. POC DISCUSSED. SKIN ASSESSED. OLD DRYED UP SCAB TO LT LOWER BACK BUTTOCK, PT STATES POS FOR SHINGLES 2 WEEKS AGO. SANDER NOTIFED. PT ALSO WISHED TO BE DNR. ORDER PLACE, PAPERWORK IN CHART.
[2021-08-24 04:12] VITALS: BP 117/71; PULSE 81; TEMP 98.1
[2021-08-24 06:52] LABS: CALCIUM 8.7 mg/dL (8.4-10.2); CREATININE, serum 0.57 mg/dL (0.57-1.11); POTASSIUM 3.6 mmol/L (3.5-4.5)
[2021-08-24 07:01] LABS: MEAN CELL VOLUME 94 fl (80.0-100.0); MEAN CORPUSCULAR HGB CONC 33 g/dl (33.0-37.0); PLATELET COUNT 193 K/mm3 (130-400); RED BLOOD COUNT 3.16 M/mm3 (4.10-5.30); REDCELL DISTRIBUTION WIDTH-CV 14.3 % (11.5-14.5)
[2021-08-24 07:06] LABS: HEMATOCRIT 29.6 % (37.0-47.0); HEMOGLOBIN 9.7 g/dl (12.5-16.0); MEAN CORPUSCULAR HEMOGLOBIN 31 pg (27.0-31.0)
[2021-08-24 07:16] VITALS: BP 127/68; PULSE 86; TEMP 97.7
--- NOTE | 2021-08-24 09:30 | NUR ---
PT ALERT, SOME CONFUSION NOTED IN PATIENT INTERMITTENTLY. PT HAS FINE CRACKLES AUSCULATED IN LOWER LOBES BILATERALLY. PT HAS CLEAR UPPER LOBES. PT REPORTED SOME SOA WITH MOVING AROUND, RESOLVES WITH REST. PT SPO2 STABLE IN VITAL SIGN DOCUMENTATION. PT HAS REDDENED, NON-BLANCHABLE COCCYX. PT CLEANED WITH PERSONAL WIPES AND MEPELEX PAD PLACED TO ALLEVIATE PRESSURE. PT HAS SCARS ON RIGHT HIP FROM PREVIOUS DIAGNOSIS OF SHINGLES. PT CALL LIGHT WITHIN REACH.
[2021-08-24 09:58] LABS: BAND 1 % (0-10); HYPOCHROMIA 1+; LYMPHOCYTE 1 % (20.0-51.0); NEUTROPHILS 97 % (42.0-75.2)
[2021-08-24 09:59] LABS: PLATELET ESTIMATE NORMAL (NORMAL)
--- NOTE | 2021-08-24 10:17 | NUR ---
PICC LINE FLUSHED, RED PORT FLUSHED WITH 20ML, BLOOD RETURN NOTED. PURPLE PORT UNABLE TO FLUSH.
[2021-08-24 11:17] VITALS: BP 129/72; PULSE 89; TEMP 98.1
--- NOTE | 2021-08-24 13:06 | NUR ---
PT STATING WAITING TO ORDER, SINCE SHE "JUST ATE"
--- NOTE | 2021-08-24 14:40 | NUR ---
PT BED BATH GIVEN, GOWN AND SOCKS CHANGED AT THIS TIME. PT STATES HAVING TROUBLE OXYGENATING. SPO2 CHECKED, 86%. O2 TIITRATED UP TO 4L, HOB ELEVATED TO 45 DEGREES. RESPIRATORY THERAPY NOTIFIED OF PT REQUESTING INHALER, RECEIVED WORD THAT PT HAD JUST RECEIVED TREATMENT. MONITORED PATIENT UNTIL SPO2 RECOVERED. CURRENT SPO2 AT 97% OXYGEN TITRATED BACK DOWN TO 3L.
[2021-08-24 15:46] VITALS: BP 140/76; PULSE 80; TEMP 97.6
[2021-08-24 16:58] VITALS: BP 143/81
--- NOTE | 2021-08-24 17:00 | NUR ---
NOTICED PT BLOOD PRESSURE SLIGHTLY ELEVATED FROM TREND, 140/76, RECHECKED AT THIS TIME, 143/81. PT DENIES DIZZINESS, HEADACHE. REPORTS MILD SOA STATING "JUST ALL THE TIME HONEY" WILL PASS ON TO INDIVIDUAL PENSION CONSULTANT.
--- NOTE | 2021-08-24 17:03 | NUR ---
PT CONTINUING ON PLAN OF CARE. PT FAMILY ABLE TO VISIT THIS SHIFT. PT HAD BOUT OF SOA AFTER BED BATH, RESOLVED WITH RN IN ROOM. PT TREADWELL TO BE DISCONTINUED THIS SHIFT. PT BLOOD PRESSURE SLIGHTLY ELEVATED DURING 1600 VS, WILL PASS ON TO PIGMENT FURNACE TENDER. PT CALL LIGHT WITHIN REACH, ABLE TO CALL FOR NEEDS.
--- NOTE | 2021-08-24 17:35 | NUR ---
THIS RN CHECKED BLOOD GLUCOSE AT 1643. BLOOD GLUCOSE 150, NO INSULIN NEEDED. GLUCOMETER NOT SENDING DATA THROUGH TO PT CHART. [employer] REF#:[id number]. CAN BE SEEN ON [employer] MONITOR.
--- NOTE | 2021-08-24 18:21 | NUR ---
TREADWELL CATHETER DISCONTINUED AT THIS TIME. BALLOON INTACT, [facility] PROVIDED. NEW DEPEND ON.
[2021-08-24 20:19] VITALS: BP 159/90; PULSE 112; TEMP 97.5
--- NOTE | 2021-08-24 21:56 | NUR ---
ALERT ANDOX4. SOA WHEN LAYING DOWN DESAT IN MID 80S. SETTING UPRIGHT NOW. TREADWELL DC TODAY USING BED [facility]. GENERAL PAIN REPORTED WANTS NORCO. PM MEDS GIVEN. PICC LINE TO RT UPPER ARM FLUSHED. BS OBTAINED, INR. POC DISCUSSED. POSSIBLE DC TOMORROW BACK TO [facility]. NEEDS MET.
[2021-08-25 00:44] VITALS: BP 142/70; PULSE 87; TEMP 97.8
[2021-08-25 04:23] VITALS: BP 130/102; PULSE 73; TEMP 98.6
--- NOTE | 2021-08-25 05:25 | NUR ---
RESTED THROUGH THE NIGHT WITHOUT INCIDENT. POSSIBLE DC TODAY BACK TO [facility].
[2021-08-25 06:44] LABS: HEMOGLOBIN 10.1 g/dl (12.5-16.0); MEAN CELL VOLUME 91 fl (80.0-100.0); MEAN CORPUSCULAR HEMOGLOBIN 31 pg (27.0-31.0); MEAN CORPUSCULAR HGB CONC 34 g/dl (33.0-37.0); MEAN PLATELET VOLUME 9.8 fl (7.4-10.4); PLATELET COUNT 224 K/mm3 (130-400); RED BLOOD COUNT 3.28 M/mm3 (4.10-5.30)
[2021-08-25 06:52] LABS: HEMATOCRIT 29.8 % (37.0-47.0)
[2021-08-25 06:56] LABS: CALCIUM 8.8 mg/dL (8.4-10.2); CREATININE, serum 0.51 mg/dL (0.57-1.11); POTASSIUM 3.6 mmol/L (3.5-4.5)
[2021-08-25 07:50] LABS: BAND 3 % (0-10); LYMPHOCYTE 3 % (20.0-51.0); NEUTROPHILS 92 % (42.0-75.2)
[2021-08-25 07:51] LABS: PLATELET ESTIMATE NORMAL (NORMAL)
[2021-08-25 08:09] VITALS: BP 138/80; PULSE 81; TEMP 97.5
[2021-08-25 12:38] VITALS: BP 148/90; PULSE 78; TEMP 97.8
--- NOTE | 2021-08-25 13:14 | NUR ---
I met with Mayra today to talk about palliative care and goals of care. She is very quick to tell me that she is aware that her lungs are bad and there isin't anything that can be done to make them better. She lives in a semi private room at [facility] and reports it is good for her. She reports that she is a very private person andlike to keep things simple and quiet. She is struggling with her current roommate who like to watch TV, talk on the phone, and keeps things bright--but reports she has a sleep mask to cover her eyes and ear plugs to keep the noise down--It works ok for me. People at [facility] do a great job taking care of me and so does the staff here. I asked her if she had heard of hospice services and she asked me what they would do that she doesn't already have? She is very happy with the care she is getting from staff and doesn't want anyone else involved. I asked her if she still wanted to come back to the hospital if she has another "episode of her lungs flaring up" and she replied that yes she would. It is between her and God and she reports that only he can make that decision. She is anxious to get back to her room at [facility]. Already is DNR and doesn't want to burden her kids. She feels that [facility] can provide her care and doesn't want another group of people coming in and bothering her.
--- NOTE | 2021-08-25 14:21 | NUR ---
First visit from the supervisor winter. No needs right now.
--- NOTE | 2021-08-25 14:51 | NUR ---
Auto Garage Attendant collaborated with [facility] who advised patient is from [facility] at the [facility]. Massiel advised they can do skilled therapy there if needed. CHITRA faxed clinical updates. CHITRA collaborated with Palliative RN, Brigitte who advised she met with patient and patient was not interested in hospice at this time. Discharge Plan: [facility]
[2021-08-25 16:14] VITALS: BP 143/69; PULSE 87; TEMP 97.9
--- NOTE | 2021-08-25 18:00 | NUR ---
Patient has had an ok day. Had to increase O2 to 5L this am due to desaturation upon exertion. Patient currently requiring 4L of O2 via nasal cannula. Course crackles noted in right lung burk. Red sacrum noted. Mepilex placed. Patient denies any pain, discomfort, or further needs at this time. VSS. Patient A&O. Call light in reach. Fall precautions in place.
[2021-08-25 20:28] VITALS: BP 120/64; PULSE 82; TEMP 97.5
--- NOTE | 2021-08-25 23:34 | NUR ---
PT IS PLEASANT AND COOPERATIVE. TOOK ALL MEDICATIONS. ASSESSMENT COMPLETED. REWRAPPED JOANN BANDAGE AROUND PICC INSERTION PER PT REQUESTED. BANDAGE WAS CRUMPLED AND NEEDED REWRAPPING. PT DENIES PAIN, NO NEEDS AT THIS TIME. CALL LIGHT IN REACH, BED IN LOWEST POSITION, WHEELS LOCKED.
[2021-08-26 00:13] VITALS: BP 133/79; PULSE 78; TEMP 97.5
[2021-08-26 04:53] VITALS: BP 140/84; PULSE 84; TEMP 97.7
[2021-08-26 06:54] LABS: BASO % 0.1 % (0.0-2.0); GRAN # 7.6 K/mm3 (1.4-6.5); GRAN % 89.4 % (42.2-75.2); HEMOGLOBIN 10.2 g/dl (12.5-16.0); LYMPH # 0.5 K/mm3 (1.2-3.4); LYMPH % 6.2 % (20.0-51.0); MEAN CELL VOLUME 91 fl (80.0-100.0); MEAN CORPUSCULAR HEMOGLOBIN 30 pg (27.0-31.0); MEAN CORPUSCULAR HGB CONC 33 g/dl (33.0-37.0); MEAN PLATELET VOLUME 9.7 fl (7.4-10.4); MONO # 0.3 K/mm3 (0.1-0.6); MONO % 3.8 % (1.7-9.3); PLATELET COUNT 246 K/mm3 (130-400); RED BLOOD COUNT 3.35 M/mm3 (4.10-5.30)
[2021-08-26 07:00] LABS: HEMATOCRIT 30.6 % (37.0-47.0)
[2021-08-26 07:12] LABS: CALCIUM 8.7 mg/dL (8.4-10.2); CREATININE, serum 0.52 mg/dL (0.57-1.11); POTASSIUM 3.9 mmol/L (3.5-4.5)
[2021-08-26 07:53] VITALS: BP 149/76; PULSE 80; TEMP 97.8
--- NOTE | 2021-08-26 09:32 | NUR ---
Long conversation with pt's daughter Diana. She voiced that she had spoken with [facility] staff members, Massiel and Linda, and was hopeful that he mother could go to [facility] where she was told she could have a private room. She also verbalized that she did not want her mother to go to hospice at this time. I reinforced to her that this was what her mother had told me--privacy, quiet environment, low lighting--were her most important things and that she was not getting those in her current situation. This was shared with public health social worker Sarah. Gera, son, should be up here later today and per Diana, was also in agreement with this plan that [facility] staff had presented to her.
[2021-08-26 11:24] VITALS: BP 132/81; PULSE 90; TEMP 97.9
--- NOTE | 2021-08-26 12:04 | NUR ---
Brigitte, palliative care nurse, notified CHITRA that the patient and her family are not wanting to pursue hospice at this time. They would like for the patient to return back to [facility] and go to [facility] for SNF. The PA notified CHITRA that the patient may be ready to discharge tomorrow. CHITRA notified and faxed updates to Massiel at [facility]. CHITRA contacted and updated the patient's son, Gera, on the above. Gera is in agreement to the plan. He asked that CHITRA contact his sister, Diana, to provide her with the update as well. CHITRA attempted to contact Diana. CHITRA left her a voicemail. *Discharge plan: [facility] SNF*
[2021-08-26 15:35] VITALS: BP 134/82; PULSE 95; TEMP 97.5
[2021-08-26 19:26] VITALS: BP 152/79; PULSE 117; TEMP 98.4
--- NOTE | 2021-08-26 20:30 | NUR ---
PATIENT IS FAIR RESTING IN BED.PATIENT IS DESATURATING WITH ACTIVITY.OXYGEN SATS DIPPING TO THE 70S.NIGHT PROVIDER INFORMED.PATIENT IS NOW ON 8L SATURATING ABOVE 90.AN INDWELLING URINARY CATHETER WAS INSERTED TO MINIMIZE ACTIVITY AND EXHAUSTION.PATIENT TOLERATED THE PROCEURE WELL.TREADWELL IS DRAINING CLEAR YELLOW URINE.SAFEY MEASURES IN PLACE.NO OTHER NEEDS A THIS TIME.
--- NOTE | 2021-08-26 23:43 | NUR ---
UPDATED DAUGHTER WILLIAM ABOUT THE PATIENT.
[2021-08-27 00:05] VITALS: BP 154/80; PULSE 80; TEMP 98
--- NOTE | 2021-08-27 01:00 | NUR ---
GAVE UPDATES TO THE DAUGHTER
[2021-08-27 03:38] VITALS: BP 141/69; PULSE 88; TEMP 97.7
--- NOTE | 2021-08-27 04:43 | NUR ---
PATIENT HAD A CALM NIGHT ON 4L OF SUPPLEMENTAL OXYGEN.TREADWELL CATHETER IS DRAINING WELL.SAFETY MEASURES IN PLACE.NO OTHER NEEDS AT THIS TIME.
[2021-08-27 06:51] LABS: BASO % 0.1 % (0.0-2.0); GRAN # 7.3 K/mm3 (1.4-6.5); GRAN % 87.9 % (42.2-75.2); HEMOGLOBIN 10.4 g/dl (12.5-16.0); LYMPH # 0.6 K/mm3 (1.2-3.4); LYMPH % 6.7 % (20.0-51.0); MEAN CELL VOLUME 94 fl (80.0-100.0); MEAN CORPUSCULAR HEMOGLOBIN 31 pg (27.0-31.0); MEAN CORPUSCULAR HGB CONC 32 g/dl (33.0-37.0); MEAN PLATELET VOLUME 9.8 fl (7.4-10.4); MONO # 0.4 K/mm3 (0.1-0.6); MONO % 4.6 % (1.7-9.3); PLATELET COUNT 241 K/mm3 (130-400)
[2021-08-27 07:03] LABS: HEMATOCRIT 32.1 % (37.0-47.0)
[2021-08-27 07:08] LABS: CALCIUM 8.6 mg/dL (8.4-10.2); CREATININE, serum 0.5 mg/dL (0.57-1.11); POTASSIUM 3.9 mmol/L (3.5-4.5)
[2021-08-27 07:36] VITALS: BP 156/94; PULSE 77; TEMP 97.4
--- NOTE | 2021-08-27 11:15 | NUR ---
The patient family members are in the room during bedside rounding when the patient expressed to the doctor that she is done, and wanted to be comfort care. She states "I'm ready to go doctor!" When asked to clarify "go", she states "I'm ready to go to [facility]." The patient has now been placed on comfort care measures. The family denies any concerns and has no questions.
--- NOTE | 2021-08-27 14:52 | NUR ---
CHITRA attended clinical rounds. The patient's son (Gera) and daughter (Diana) were at bedside. The patient and her family have decided to pursue comfort measures. They would like for the patient to return back to [facility] on comfort care. The plan is to transition the patient to [facility] on Wednesday, via ambulance. CHITRA notified and faxed updates to Massiel at [facility]. Massiel reports that they are all good with accepting the patient back on comfort care. She reports that they will have the patient come to [facility], that way she can have more visitors. Massiel reports that their staff can provide the comfort care or the patient's family can have a hospice agency come in. [facility]. CHITRA met with the patient and her family to update. The patient's son and daughter are in agreement to the plan. They would just like to pursue with [facility] providing the comfort care and they are not interested bringing in a hospice agency. SW to continue to follow. *Discharge plan: [facility] on comfort care on Wednesday*
--- NOTE | 2021-08-27 19:25 | NUR ---
THIS PATIENT HAS BEEN STABLE ON COMFORT CARE SINCE THE EARLY AFTERNOON. THE PATIENT REQUESTED PAIN AND ANXIETY MEDICATION, AND NURSING STAFF DOSED APPROPRIATELY. THERE ARE NO OTHER CONCERNS WITH THIS PATIENT, AND REPORT HAS BEEN GIVEN TO MANDY ARTEAGA.
[2021-08-27 20:40] VITALS: BP 123/75; PULSE 86
--- NOTE | 2021-08-27 21:59 | NUR ---
PT RESTING W EYES CLOSED, GRIMACED AND MOAN W VITAL SIGN. PRN MORPHINE AND ATVIAN GIVEN. O2 1.5 LITERS. PT WAKES WHEN ASKED IF HAVING ANY PAIN DID NOT OPEN EYES BUT SAID YES SOME. PT DAUGHTER UPDATED, PT RESTING COMFORTABLY.
--- NOTE | 2021-08-28 02:00 | NUR ---
PT CHECKED ON FREQ TONIGHT HAS BEEN RESTING W EYES CLOSED, RESP SHALLOW BUT EVEN. DOSED WITH PRN COMFORT MEDS NEEDED. DAUGHTER UPDATED TWICE TONIGHT.
--- NOTE | 2021-08-28 03:26 | NUR ---
PT WAKES UP AND ASK TO GET ON BEDPAN. ASK IF SHES HAVING PAIN, STATES YES SOME. ROXINOL PO GIVEN.
[2021-08-28 04:48] VITALS: BP 135/73; PULSE 86; TEMP 97.4
[2021-08-28 08:34] VITALS: BP 116/67; PULSE 94; TEMP 97.5
--- NOTE | 2021-08-28 18:49 | NUR ---
Patient has had an uneventful day. Currently requiring 2L of O2 via nasal cannula. Denies any pain, discomfort, or further needs at this time. Patient asked if she would like to recieve Insulin or accu checks. She declined them and stated that she would no longer like them done. Kala notified. Insulin DC'd.
--- NOTE | 2021-08-28 21:00 | NUR ---
PATIENT IS RESTING IN BED.PATIENT IS CLOSING HER EYES.PATIENT STATES THAT SHE IS READY TO GO.PATIENT DENIES PAIN.PATIENT USES THE CALL LIGHT APPROPRIATELY.SAFETY MEASURES IN PLACE.NO OTHER NEEDS AT THIS TIME.
--- NOTE | 2021-08-28 21:55 | NUR ---
UPDATED PATIENT'S DAUGHTER ABOUT THE PATIENT.
--- NOTE | 2021-08-29 05:39 | NUR ---
PATIENT HAD UNEVENTFUL NIGHT.PATIENT DENIES PAIN.PATIENT REPORTS CONSTIPATION.MEDICATION GIVEN PER DEC.SAFETY MEASURES IN PLACE.NO OTHER NEEDS AT THUS TIME.
--- NOTE | 2021-08-29 07:12 | NUR ---
Pt. progressing w/ plan of care. Pt. resting in bed quietly at this time. Pt. reports feeling pressure in her rectum area. Pt. denies other needs besides her request for something to decrease her rectal pain. Call light and belongings in reach.
[2021-08-29] MEDS ORDERED: ROXANOL 20MG20 MG/ML SL (09:02)
[2021-08-29] MEDS ORDERED: ATIVAN 0.50.5 MG/TAB PO (09:04)
--- NOTE | 2021-08-29 10:15 | NUR ---
Pt. progressing w/ plan of care. Pt. has been using the bedpan to void so far this shift. Pt. reports pain as well as anxiety today. PRN pain and anxiety medication administered w/ fair effect. Plan for pt. to be discharged to [facility] today. Covid swab complete. Pt.'s PICC line to be removed by charge nurse Ladi before she gets picked up at 1300 by [facility] staff. Pt. makes needs known, call light and belongings in reach.
--- NOTE | 2021-08-29 11:34 | NUR ---
International Trade Manager attended clinical rounds with the team and patient to discharge to [facility] on comfort today. CHITRA faxed clinical updates and negative COVID results to Abram at [facility]. CHITRA contacted [facility] and set transport time for 1300. CHITRA completed EMS forms and placed them on patient's chart. CHITRA contacted patient's daughter, Diana to provide update on discharge plan. Diana is in agreement with discharge to [facility] on comfort care today. Diana advised that she will update patient's son, Gera on discharge and they will be at [facility] later this afternoon to visit. CHITRA faxed discharge orders to Abram at [facility]. Discharge Plan: [facility] on comfort care
--- NOTE | 2021-08-29 14:02 | NUR ---
Pt. discharged to [facility]. Pt. picked up by EMS staff at 1305. Pt.'s PICC to R upper arm wasremoved, IV to to left forearm removed. Site is c/d/i to both sites. Pt. was dressed and paperwork provided to EMS staff. Report called to Tea from [facility]. All questions answered.
== END 2021-08-29 14:05 | disposition hospice, home (50) | DRG 189 ==
LOC: COL.ER 09:03 → MEDICAL 11:00
PROVIDERS: Emergency Medicine; Physician Assistant; Student in an Organized Health Care Education/Training Program; ADMIT Internal Medicine
PROC: 02HV33Z Insertion of Infusion Device into Superior Vena Cava, Percutaneous Approach (ICD-10-PCS; principal; 2021-08-22)
DX: J96.21 Acute and chronic respiratory failure with hypoxia (principal); E87.2 Acidosis; I50.32 Chronic diastolic (congestive) heart failure; J84.9 Interstitial pulmonary disease, unspecified; E03.9 Hypothyroidism, unspecified; I25.10 Atherosclerotic heart disease of native coronary artery without angina pectoris; F32.A Depression, unspecified; K21.9 Gastro-esophageal reflux disease without esophagitis; L89.151 Pressure ulcer of sacral region, stage 1; Z96.1 Presence of intraocular lens; Z96.651 Presence of right artificial knee joint; J84.10 Pulmonary fibrosis, unspecified; J44.9 Chronic obstructive pulmonary disease, unspecified; E87.5 Hyperkalemia; Z20.822 Contact with and (suspected) exposure to COVID-19; E78.5 Hyperlipidemia, unspecified; I11.0 Hypertensive heart disease with heart failure; E11.9 Type 2 diabetes mellitus without complications; Z66 Do not resuscitate; J84.112 Idiopathic pulmonary fibrosis; Z51.5 Encounter for palliative care; Z90.710 Acquired absence of both cervix and uterus; Z98.41 Cataract extraction status, right eye; Z99.81 Dependence on supplemental oxygen
CPT/HCPCS: 99223-AI; 99232-AI; 99233-AI; 99239; A4314; C1751; C1892; J1650; J1815; J2060; J2543; J2920; J2930; J7030; Q9967